=== PATIENT | male | born 1950 | race Caucasian/White ===

== ENCOUNTER 2020-11-10 11:01 | Outpatient (REF) | payer MEDICARE, MEDICAID, SELFPAY ==
[2020-11-10 13:38] LABS: Alanine Aminotransferase 13 U/L (0-40); Albumin Level 4.1 g/dL (3.5-5.0); Alkaline Phosphatase 70 U/L (39-117); Anion Gap 12 (12-20); Aspartate Amino Transferase 10 U/L (5-37); Bilirubin Total 0.5 mg/dL (0.0-1.0); Blood Urea Nitrogen 22 mg/dL (9-16); Calcium 9.1 mg/dL (8.4-10.2); Carbon Dioxide 27 mmol/L (22-29); Chloride 107 mmol/L (96-108); Estimated Glomerular Filt Rate 44; Glucose Fasting 165 mg/dL (60-99); Potassium 4.5 mmol/L (3.3-5.1); Sodium 141 mmol/L (135-145); Total Protein 7.2 g/dL (6.5-8.0)
[2020-11-10 13:42] LABS: Estimated Average Glucose 177 mg/dL; Hemoglobin A1c % 7.8 %
[2020-11-10 14:46] LABS: Prostate Specific Antigen 10.25 ng/mL (<0.05-4.0)
[2020-11-14 11:48] LABS: Testosterone, Total 438 ng/dL (250-1100)
== END 2020-11-10 11:02 | disposition home or self-care (01) ==
LOC: HO.MANLDS 11:01
PROVIDERS: PCP Internal Medicine; Visit Provider Internal Medicine
DX: E55.9 Vitamin D deficiency, unspecified (principal); E29.1 Testicular hypofunction; E11.9 Type 2 diabetes mellitus without complications
CPT/HCPCS: 36415; 80053; 82306; 83036; 84153; 84403

== ENCOUNTER 2021-01-14 10:38 | Outpatient (REF) | payer MEDICARE, MEDICAID, SELFPAY ==
[2021-01-14 12:53] LABS: Hematocrit 50.1 % (42-52); Hemoglobin 16.4 g/dl (14.0-18.0); Mean Corpuscular HGB Conc 32.7 g/dl (31.0-36.0); Mean Corpuscular Hemoglobin 29.5 pg (27.0-33.0); Mean Corpuscular Volume 90.1 fL (80-98); Mean Platelet Volume 10.3 fL (9.4-12.4); Platelet Count 171 X10*3/uL (160-400); Red Blood Count 5.56 X10*6/uL (4.60-5.80); White Blood Count 3.9 X10*3/uL (4.8-10.8)
[2021-01-14 13:08] LABS: Iron 87 mcg/dL (45-160); Percent Iron Saturation 29 % (15-50); Total Iron Binding Capacity 298 mcg/dL (228-428); Unsaturated Iron Binding 211 ug/dL
[2021-01-14 14:48] LABS: Erythrocyte Sedimentation Rate 6 MM/HR (0-15)
[2021-01-16 07:42] LABS: ~HepC Num1 0.12 S/CO (0.00-0.79); ~Hepatitis C Antibody Nonreactive (Nonreactive)
== END 2021-01-14 10:39 | disposition home or self-care (01) ==
LOC: HO.MANLDS 10:38
PROVIDERS: PCP Internal Medicine; Visit Provider Internal Medicine
DX: I10 Essential (primary) hypertension (principal); E11.9 Type 2 diabetes mellitus without complications
CPT/HCPCS: 36415; 83540; 85027; 85652; 86803

== ENCOUNTER 2021-02-18 11:45 | Outpatient (REF) | payer MEDICARE, MEDICAID, SELFPAY ==
[2021-02-18 13:11] LABS: Alanine Aminotransferase 22 U/L (0-40); Albumin Level 4.1 g/dL (3.5-5.0); Alkaline Phosphatase 68 U/L (39-117); Anion Gap 11 (12-20); Aspartate Amino Transferase 17 U/L (5-37); Bilirubin Total 0.3 mg/dL (0.0-1.0); Blood Urea Nitrogen 14 mg/dL (9-16); Calcium 9.1 mg/dL (8.4-10.2); Carbon Dioxide 25 mmol/L (22-29); Chloride 108 mmol/L (96-108); Cholesterol 239 mg/dL; Estimated Glomerular Filt Rate 51; Glucose Fasting 90 mg/dL (60-99); HDL Cholesterol 53 mg/dL; LDL Cholesterol Calculated 173 mg/dl; Potassium 4.4 mmol/L (3.3-5.1); Sodium 140 mmol/L (135-145); Triglycerides 66 mg/dL
[2021-02-18 13:41] LABS: Creatinine Urine 288.32 mg/dL; Microalbum/Creatinine Ratio Ur 68.3 ug/mg cr
[2021-02-18 14:21] LABS: Estimated Average Glucose 169 mg/dL; Hemoglobin A1c % 7.5 %
== END 2021-02-18 11:46 | disposition home or self-care (01) ==
LOC: HO.MANLDS 11:45
PROVIDERS: PCP Internal Medicine; Visit Provider Internal Medicine
DX: E11.9 Type 2 diabetes mellitus without complications (principal); I10 Essential (primary) hypertension
CPT/HCPCS: 36415; 80053; 80061; 82043; 83036

== ENCOUNTER 2021-11-24 09:49 | Outpatient (REF) | payer MEDICARE, MEDICAID, SELFPAY ==
[2021-11-24 11:26] LABS: Estimated Average Glucose 174 mg/dL; Hemoglobin A1c % 7.7 %
[2021-11-24 11:27] LABS: Alanine Aminotransferase 10 U/L (0-40); Alkaline Phosphatase 60 U/L (39-117); Anion Gap 12 (12-20); Aspartate Amino Transferase 13 U/L (5-37); Bilirubin Total 0.6 mg/dL (0.0-1.0); Blood Urea Nitrogen 26 mg/dL (9-16); Calcium 9.1 mg/dL (8.4-10.2); Carbon Dioxide 26 mmol/L (22-29); Chloride 107 mmol/L (96-108); Cholesterol 225 mg/dL; Estimated Glomerular Filt Rate 45; Glucose Fasting 135 mg/dL (60-99); HDL Cholesterol 53 mg/dL; LDL Cholesterol Calculated 155 mg/dl; Potassium 4.2 mmol/L (3.3-5.1); Sodium 141 mmol/L (135-145); Total Protein 6.8 g/dL (6.5-8.0); Triglycerides 86 mg/dL
[2021-11-24 11:48] LABS: Thyroid Stimulating Hormone 2.91 uIU/mL (0.32-4.0)
[2021-11-24 12:33] LABS: Creatinine Urine 152.83 mg/dL; Microalbum/Creatinine Ratio Ur 64.1 ug/mg cr
== END 2021-11-24 09:50 | disposition home or self-care (01) ==
LOC: HO.MANLDS 09:49
PROVIDERS: PCP Internal Medicine; Visit Provider Internal Medicine
DX: E11.9 Type 2 diabetes mellitus without complications (principal); I10 Essential (primary) hypertension; R53.83 Other fatigue
CPT/HCPCS: 36415; 80053; 80061; 82043; 83036; 84443

== ENCOUNTER 2022-06-08 10:12 | Outpatient (REF) | payer MEDICARE, MEDICAID, SELFPAY ==
[2022-06-08 11:19] LABS: MANUAL DIFF FLAG NO
[2022-06-08 11:38] LABS: Basophils Percent Auto 1.1 % (0-2); Eosinophils Absolute Auto 0.2 X10*3/uL (0.0-0.4); Hemoglobin 15.2 g/dl (14.0-18.0); Imm Gran Abs Auto 0.01 X10*3/uL (0.00-0.03); Imm Gran Pct Auto 0.3 % (0.0-0.4); Lymphocytes Percent Auto 25.7 % (20-40); Mean Corpuscular Hemoglobin 30.2 pg (27.0-33.0); Mean Corpuscular Volume 91.5 fL (80.0-98.0); Mean Platelet Volume 9.6 fL (9.4-12.4); Monocytes Absolute Auto 0.4 X10*3/uL (0.1-1.2); Monocytes Percent Auto 9.6 % (2-11); Neutrophils Absolute Auto 2.2 x10*3/uL (2.0-8.3); Neutrophils Percent Auto 59.3 % (45-73); Platelet Count 174 X10*3/uL (160-400); Red Blood Count 5.03 X10*6/uL (4.60-5.80); Red Cell Distribution Width 12.8 % (11.0-16.0); White Blood Count 3.7 X10*3/uL (4.8-10.8)
[2022-06-08 11:49] LABS: Estimated Average Glucose 146 mg/dL; Hemoglobin A1c % 6.7 %
[2022-06-08 11:58] LABS: Alanine Aminotransferase 11 U/L (0-40); Alkaline Phosphatase 63 U/L (39-117); Anion Gap 14 (12-20); Aspartate Amino Transferase 15 U/L (5-37); Bilirubin Total 0.4 mg/dL (0.0-1.0); Blood Urea Nitrogen 18 mg/dL (9-16); Calcium 9.4 mg/dL (8.4-10.2); Carbon Dioxide 26 mmol/L (22-29); Chloride 108 mmol/L (96-108); Cholesterol 212 mg/dL; Estimated Glomerular Filt Rate 50; Glucose Random 108 mg/dL (60-115); HDL Cholesterol 58 mg/dL; LDL Cholesterol Calculated 140 mg/dl; Potassium 5.1 mmol/L (3.3-5.1); Sodium 143 mmol/L (135-145); Total Protein 6.7 g/dL (6.5-8.0); Triglycerides 72 mg/dL
== END 2022-06-08 10:13 | disposition home or self-care (01) ==
LOC: HO.MANLDS 10:12
PROVIDERS: Visit Provider Internal Medicine
DX: E11.9 Type 2 diabetes mellitus without complications (principal); I10 Essential (primary) hypertension
CPT/HCPCS: 36415; 80053; 80061; 83036; 85025

== ENCOUNTER → 2022-12-30 10:59 | Outpatient (BNVA) | payer MEDICARE, MEDICAID, SELFPAY | PROVIDERS: PCP Internal Medicine; Visit Provider Psychiatry & Neurology Neurology | DX: G47.51 Confusional arousals (principal); F09 Unspecified mental disorder due to known physiological condition; F41.9 Anxiety disorder, unspecified | CPT/HCPCS: 99202 ==

== ENCOUNTER 2023-01-18 08:00 | Outpatient (REF) | payer MEDICARE, MEDICAID, SELFPAY ==
--- NOTE | 2023-01-18 08:05 | EEG_ITS ---
This is a 16 channel EEG with an EKG lead. The patient is reported awake during the tracing. Background EEG rhythm is about 10 hertz low to medium amplitude posteriorly and lower amplitude fast anteriorly. Photic stimulation does not produce any significant abnormality. Hyperventilation is not performed. Cardiac lead does not reveal any significant abnormality. No sharp wave spikes or paroxysmal tendency noted. IMPRESSION: Unremarkable EEG. MD JHON Guardado/KAYLEEN / [id number]
== END 2023-01-18 08:01 | disposition home or self-care (01) ==
LOC: HO.NEURO 08:00
PROVIDERS: PCP Internal Medicine; Visit Provider Psychiatry & Neurology Neurology
DX: G47.51 Confusional arousals (principal)
CPT/HCPCS: 95816

== ENCOUNTER 2023-01-21 10:20 | Outpatient (REF) | payer MEDICARE, MEDICAID, SELFPAY ==
[2023-01-21 12:51] LABS: MANUAL DIFF FLAG NO
[2023-01-21 12:58] LABS: Basophils Percent Auto 0.5 % (0-2); Eosinophils Absolute Auto 0.1 X10*3/uL (0.0-0.4); Eosinophils Percent Auto 1.6 % (0-4); Hematocrit 49.1 % (42.0-52.0); Imm Gran Abs Auto 0.03 X10*3/uL (0.00-0.03); Imm Gran Pct Auto 0.7 % (0.0-0.4); Lymphocytes Percent Auto 24.1 % (20-40); Mean Corpuscular HGB Conc 32.6 g/dl (31.0-36.0); Mean Corpuscular Hemoglobin 30.3 pg (27.0-33.0); Mean Platelet Volume 10.3 fL (9.4-12.4); Monocytes Absolute Auto 0.4 X10*3/uL (0.1-1.2); Monocytes Percent Auto 8.9 % (2-11); Neutrophils Absolute Auto 2.7 x10*3/uL (2.0-8.3); Neutrophils Percent Auto 64.2 % (45-73); Platelet Count 168 X10*3/uL (160-400); Red Blood Count 5.28 X10*6/uL (4.60-5.80); Red Cell Distribution Width 13.2 % (11.0-16.0); White Blood Count 4.3 X10*3/uL (4.8-10.8)
[2023-01-21 13:04] LABS: Estimated Average Glucose 183 mg/dL
[2023-01-21 13:08] LABS: Alanine Aminotransferase 14 U/L (0-40); Alkaline Phosphatase 69 U/L (39-117); Anion Gap 14 (12-20); Aspartate Amino Transferase 18 U/L (5-37); Bilirubin Total 0.5 mg/dL (0.0-1.0); Blood Urea Nitrogen 21 mg/dL (9-16); Calcium 9.1 mg/dL (8.4-10.2); Carbon Dioxide 26 mmol/L (22-29); Chloride 108 mmol/L (96-108); Cholesterol 227 mg/dL; Estimated Glomerular Filt Rate 48; Glucose Random 121 mg/dL (60-115); HDL Cholesterol 58 mg/dL; LDL Cholesterol Calculated 157 mg/dl; Sodium 143 mmol/L (135-145); Total Protein 6.6 g/dL (6.5-8.0); Triglycerides 64 mg/dL
== END 2023-01-21 10:21 | disposition home or self-care (01) ==
LOC: HO.MANLDS 10:20
PROVIDERS: Visit Provider Internal Medicine
DX: E11.9 Type 2 diabetes mellitus without complications (principal); I10 Essential (primary) hypertension
CPT/HCPCS: 36415; 80053; 80061; 83036; 85025

== ENCOUNTER 2023-06-17 11:12 | Outpatient (AMB) | payer MEDICARE, MEDICAID, SELFPAY ==
--- NOTE | 2023-06-17 11:31 | MHC.OFFVIS ---
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: No Allergies ezetimibe Allergy (Severe, Verified 06/17/23 11:33) back ache fluticasone [From Advair Diskus] Allergy (Severe, Verified 06/17/23 11:33) Cough metoclopramide [From Reglan] Allergy (Severe, Verified 06/17/23 11:33) Itching salmeterol [From Advair Diskus] Allergy (Severe, Verified 06/17/23 11:33) Cough Sulfa (Sulfonamide Antibiotics) Allergy (Unknown, Verified 06/17/23 11:33) Unknown metformin Adverse Reaction (Severe, Verified 06/17/23 11:33) Hives breo elipta Allergy (Severe, Uncoded 06/17/23 11:33) Cough HPI HPI Comments History of Present Illness Details 72 y/o male comes for evaluation of episodes of confusion in sleep. Pt's noticed arousals from sleep where patient was confused. He has had 4 episodes since the last visit. It is usually in a the second part of the night- around 3-4 am. He woke up, came out of his room without clothes and did not know the date, had difficulty remembering his sons name and 's name. He does not remember these episodes when he wakes up in the morning. He tried ativan 0.5 mg but not tolerated, groggy and can't think well the next day. He denies nightmares or insomnia. He is on BiPAP and managed by sleep medicine services. The compliance and therapy response (03/19/12-06/16/23) reviewed. He is on BiPAP 15/05. The usage days 100 % and the average usage hours 8 hrs 50 min. The AHI was 1.3/hr. He has short term memory issues during daytime. He had mild anxiety and depression and started escitalopram 10 mg but it caused irritation and temper. Pt does not want to take escitalopram. Pt reports bilateral hands tremor L>R, left started couple of years ago and right hand tremor started recently. He has difficulty writing, and drinking water. He reports he tripped and fall a lot, left leg more stiff than right. Pt denies drooling, difficulty swallowing or constipation. MRI Brain - 01/2022 - Nonspecific white matter changes He was seeing Dr. Pacheco for chronic migraines and had neuropsych eval with Dr. Petit. [facility] Medical History (Updated 12/30/22 @ 11:51 by Bernadette Coreas MD) Cognitive disorder Obstructive sleep apnea Confusional arousals Anxiety Pulmonary embolism Heart murmur HTN (hypertension) Pulmonary HTN Migraine Depression Factor 5 Leiden mutation, heterozygous DVT (deep venous thrombosis) Asthma Abducens nerve palsy Insomnia Diabetes Surgical History History of carpal tunnel surgery History of cataract surgery History of back surgery H/O hernia repair History of laparoscopic appendectomy Family History (Updated 06/17/23 @ 11:40 by Zeinab Landry CMA) Father HTN (hypertension) CHF (congestive heart failure) Diabetes Brother Prostate cancer Social History (Updated 06/17/23 @ 11:40 by Zeinab Landry CMA) Alcohol intake: never Patient Tobacco Use Status: Never used Tobacco Use of substances other than those prescribed or required for medical reasons: No Review of Systems Const All systems reviewed & are unremarkable except as noted in HPI and below Physical Exam Vital Signs: Last Vital Signs Pulse 77 06/17/23 11:40 BP 130/68 06/17/23 11:40 Pulse Ox 96 06/17/23 11:40 Oxygen Delivery Method Room Air 06/17/23 11:40 Const General: cooperative, healthy appearing, comfortable and anxious Nutritional Appearance: overweight Orientation/consciousness: patient oriented x3 Limitations: no limitations HEENT Head: Yes normal to inspection and Yes normocephalic Eyes Pupils: Equal, round and reactive pupils present Neuro Other: very mildly decreased facial expression. fine finger movement intact. mild bilateral hands posturing tremor. L >R decreased arm swing. General: patient oriented x3, tone normal, moves all extremities and no focal motor deficits Cranial nerves: Yes Equal, round and reactive pupils present, Yes Bilaterally intact EOM present, Yes Nystagmus not present, Yes Normal facial strength present, Yes Midline tongue present, Yes Symmetric palate elevation present and Yes Ability to bilaterally elevate shoulders present Cognition (Neuro): normal cognition Gait exam (Neuro): Normal gait present Motor exam (neuro): 5/5 motor strength present throughout and Normal motor muscle tone present throughout Deep tendon reflexes (DTR's): Right triceps reflex intensity grade: 1+, Left triceps reflex intensity grade: 1+, Rt Biceps (C5, C6): 1+, Left biceps reflex intensity grade: 1+, Right brachioradialis reflex intensity grade: 1+, Left brachioradialis reflex intensity grade: 1+, Right patellar reflex intensity grade: 1+ and Left patellar reflex intensity grade: 1+ Coordination: [id number] test normal Psych Appearance: grossly normal Mental Status: mental status grossly normal Affect: normal affect Attitude: cooperative Assessment & Plan Assessment & Plan (1) Confusional arousals: Code(s): G47.51 - Confusional arousals (2) Anxiety: Code(s): F41.9 - Anxiety disorder, unspecified (3) Cognitive disorder: Code(s): F09 - Unspecified mental disorder due to known physiological condition Plan Advised him tapered off escitalopram. Continue to use BiPAP, nightly and more than 4 hrs. Advised patient to have repeat PSG sleep study to assess REM behavior. Advised patient to take melatonin 5 mg to 10 mg qHS to manage REM behavior. F/U with Dr. Coreas for possible Parkinson's. Medications: New melatonin 5 mg PO BEDTIME 30 days PRN 30 tabs 6RF sleep melatonin 10 mg (2 x 5 mg) PO BEDTIME 30 days PRN 60 tabs 6RF sleep Coding Level of Care Code Est Pt Level 4 (00223) Diagnoses Confusional arousals G47.51 Anxiety F41.9 Cognitive disorder F09
[2023-06-17 11:40] VITALS: BP 130/68; PULSE 77; O2SAT 96
== END 2023-06-17 12:50 | disposition home or self-care (01) ==
PROVIDERS: Visit Provider Nurse Practitioner Family
DX: G47.51 Confusional arousals (principal); F41.9 Anxiety disorder, unspecified; R41.89 Other symptoms and signs involving cognitive functions and awareness
CPT/HCPCS: 99214

== ENCOUNTER → 2023-06-17 11:12 | Outpatient (BNVA) | payer MEDICARE, MEDICAID, SELFPAY | PROVIDERS: Visit Provider Nurse Practitioner Family | DX: G47.51 Confusional arousals (principal); F32.A Depression, unspecified; F41.9 Anxiety disorder, unspecified | CPT/HCPCS: 99212 ==

== ENCOUNTER → 2023-06-22 19:30 | Outpatient (REF) | payer MEDICARE, MEDICAID, SELFPAY | LOC: HO.SL 19:30 | PROVIDERS: Visit Provider Nurse Practitioner Family | DX: G47.33 Obstructive sleep apnea (adult) (pediatric) (principal); G47.52 REM sleep behavior disorder; R01.1 Cardiac murmur, unspecified; I10 Essential (primary) hypertension | CPT/HCPCS: 95810 ==

== ENCOUNTER → 2023-06-23 00:55 | Outpatient (BNV) | payer MEDICARE, MEDICAID, SELFPAY | PROVIDERS: Visit Provider Psychiatry & Neurology Neurology | DX: G47.33 Obstructive sleep apnea (adult) (pediatric) (principal) | CPT/HCPCS: 95810 ==

== ENCOUNTER 2023-08-03 12:56 | Outpatient (REF) | payer MEDICARE, MEDICAID, SELFPAY ==
--- NOTE | 2023-08-03 13:01 | EEG_ITS ---
This is a 16-channel EEG with an EKG lead. The patient is reported awake during the tracing. Background EEG rhythm is 10 to 12 hertz, 5 to 50 microvolt posteriorly lower amplitude and fast anteriorly. Couple of brief left hemispheric, temporal area sharply contoured theta range discharges lasting for a second or two were noted. Photic stimulation did not produce any significant driving and hyperventilation was unremarkable. Cardiac lead did not reveal any significant abnormality. IMPRESSION: Slightly abnormal EEG suggestive of paroxysmal left hemispheric, temporal, disorder and suspicion of partial seizure disorder. MD JHON Guardado/KAYLEEN / [id number]
== END 2023-08-03 12:57 | disposition home or self-care (01) ==
LOC: HO.NEURO 12:56
PROVIDERS: Visit Provider Nurse Practitioner Family
DX: G47.51 Confusional arousals (principal); R56.9 Unspecified convulsions
CPT/HCPCS: 95816

== ENCOUNTER 2023-08-18 14:01 | Outpatient (AMB) | payer MEDICARE, MEDICAID, SELFPAY ==
--- NOTE | 2023-08-18 14:08 | A.OFFVIS_ITS ---
Intake Vital Signs 08/18/23 14:09 Height 5 ft 9 in Weight 218 lb BMI 32.2 BP 130/74 Blood Pressure Location Rt brachial Position Sitting Pulse 86 Pulse Source Pulse Oximeter Pulse Oximetry (%) 96 Oxygen Delivery Method Room Air Intake Visit Reasons: Follow up - Confirmed Intake Note: Patient presents for follow up. Patient states I dont have a good balance I have pt that comes to the house and it's ending tuesday. I'm also dropping stuff. Allergies ezetimibe Allergy (Severe, Verified 08/18/23 14:14) back ache fluticasone [From Advair Diskus] Allergy (Severe, Verified 08/18/23 14:14) Cough metoclopramide [From Reglan] Allergy (Severe, Verified 08/18/23 14:14) Itching salmeterol [From Advair Diskus] Allergy (Severe, Verified 08/18/23 14:14) Cough Sulfa (Sulfonamide Antibiotics) Allergy (Unknown, Verified 08/18/23 14:14) Unknown metformin Adverse Reaction (Severe, Verified 08/18/23 14:14) Hives breo elipta Allergy (Severe, Uncoded 08/18/23 14:14) Cough HPI HPI Comments History of Present Illness0 Details 72 y/o male patient presents with his wi fe for follow up of sleep study. Pt underwent PSG sleep study to assess REM behavior. The study result was significant for mild degree of sleep apnea with increased severity in REM. The AHI was 10/hr, REM AHI was 50/hr, and oxygen ravindra was 82%. Sleep efficiency was 44.7%, REM latency was 205 min, and REM sleep was 6.1 % of the total sleep time. Pt had EEG done and the result was Slightly abnormal EEG suggestive of paroxysmal left hemispheric, temporal, disorder and suspicion of partial seizure disorder. He started Keppra, but it caused mood changes and stopped on 08/09. He started lamotrigine 100 mg BID, 08/10 he still feels irritable but not really bad. He still wakes up couple of times, but able to go back to sleep. He is on doxepin and melatonin and his sleep behavior has been improved a lot. [facility] Medical History (Updated 07/08/23 @ 15:47 by Ruma Gilmore CNP) Cognitive disorder Obstructive sleep apnea Confusional arousals Anxiety Pulmonary embolism Heart murmur HTN (hypertension) Pulmonary HTN Migraine Depression Factor 5 Leiden mutation, heterozygous DVT (deep venous thrombosis) Asthma Abducens nerve palsy Insomnia Diabetes Surgical History History of carpal tunnel surgery History of cataract surgery History of back surgery H/O hernia repair History of laparoscopic appendectomy Family History Father HTN (hypertension) CHF (congestive heart failure) Diabetes Brother Prostate cancer Social History Alcohol intake: never Patient Tobacco Use Status: Never used Tobacco Review of Systems Const All systems reviewed & are unremarkable except as noted in HPI and below Physical Exam Vital Signs: Last Vital Signs Pulse 86 08/18/23 14:09 BP 130/74 08/18/23 14:09 Pulse Ox 96 08/18/23 14:09 Oxygen Delivery Method Room Air 08/18/23 14:09 BMI result Body Mass Index 32.2 Const General: cooperative, healthy appearing, comfortable and anxious Nutritional Appearance: overweight Orientation/consciousness: patient oriented x3 Limitations: no limitations HEENT Head: Yes normal to inspection and Yes normocephalic Eyes Pupils: Equal, round and reactive pupils present Neuro Other: very mildly decreased facial expression. fine finger movement intact. mild bilateral hands posturing tremor. L >R decreased arm swing. General: patient oriented x3, tone normal, moves all extremities and no focal motor deficits Cranial nerves: Yes Equal, round and reactive pupils present, Yes Bilaterally intact EOM present, Yes Nystagmus not present, Yes Normal facial strength present, Yes Midline tongue present, Yes Symmetric palate elevation present and Yes Ability to bilaterally elevate shoulders present Cognition (Neuro): normal cognition Gait exam (Neuro): Normal gait present Motor exam (neuro): 5/5 motor strength present throughout and Normal motor muscle tone present throughout Deep tendon reflexes (DTR's): Right triceps reflex intensity grade: 1+, Left triceps reflex intensity grade: 1+, Rt Biceps (C5, C6): 1+, Left biceps reflex intensity grade: 1+, Right brachioradialis reflex intensity grade: 1+, Left brachioradialis reflex intensity grade: 1+, Right patellar reflex intensity grade: 1+ and Left patellar reflex intensity grade: 1+ Coordination: [id number] test normal Psych Appearance: grossly normal Mental Status: mental status grossly normal Affect: normal affect Attitude: cooperative Assessment & Plan Assessment & Plan (1) Seizure-like activity: Code(s): R56.9 - Unspecified convulsions (2) REM behavioral disorder: Code(s): G47.52 - REM sleep behavior disorder (3) Obstructive sleep apnea: Comment: On BiPAP Code(s): G47.33 - Obstructive sleep apnea (adult) (pediatric) Plan Continue to take lamotrigine 100 mg BID, doxepin 3 mg and melatonin 10 mg qHS. Continue to use BiPAP nightly and more than 4 hrs, as patient experiences good clinical effects. Stressed medication and BiPAP compliance. Orders: Orders EEG electroencephalogram 08/03/23 G47.51 - Confusional arousals, R56.9 - Unspecified convulsions Coding Level of Care Code Est Pt Level 4 (63746) Diagnoses Seizure-like activity R56.9 REM behavioral disorder G47.52 Obstructive sleep apnea G47.33
[2023-08-18 14:09] VITALS: BP 130/74; PULSE 86; O2SAT 96; BMI 32.2
== END 2023-08-18 14:42 | disposition home or self-care (01) ==
PROVIDERS: PCP Internal Medicine; Visit Provider Nurse Practitioner Family
DX: R56.9 Unspecified convulsions (principal); G47.52 REM sleep behavior disorder; G47.33 Obstructive sleep apnea (adult) (pediatric)
CPT/HCPCS: 99214

== ENCOUNTER → 2023-08-18 14:01 | Outpatient (BNVA) | payer MEDICARE, MEDICAID, SELFPAY | PROVIDERS: PCP Internal Medicine; Visit Provider Nurse Practitioner Family | DX: G47.52 REM sleep behavior disorder (principal); R56.9 Unspecified convulsions; G47.33 Obstructive sleep apnea (adult) (pediatric) | CPT/HCPCS: 99212 ==

== ENCOUNTER 2023-09-05 10:40 | Outpatient (REF) | payer MEDICARE, MEDICAID, SELFPAY ==
[2023-09-05 13:24] LABS: MANUAL DIFF FLAG NO
[2023-09-05 13:57] LABS: Basophils Percent Auto 0.7 % (0-2); Eosinophils Absolute Auto 0.1 X10*3/uL (0.0-0.4); Hematocrit 47.3 % (42.0-52.0); Hemoglobin 15.4 g/dl (14.0-18.0); Imm Gran Abs Auto 0.02 X10*3/uL (0.00-0.03); Imm Gran Pct Auto 0.5 % (0.0-0.4); Lymphocytes Percent Auto 24.3 % (20-40); Mean Corpuscular HGB Conc 32.6 g/dl (31.0-36.0); Mean Corpuscular Hemoglobin 30.3 pg (27.0-33.0); Mean Corpuscular Volume 93.1 fL (80.0-98.0); Mean Platelet Volume 9.6 fL (9.4-12.4); Monocytes Absolute Auto 0.4 X10*3/uL (0.1-1.2); Monocytes Percent Auto 8.9 % (2-11); Neutrophils Absolute Auto 2.6 x10*3/uL (2.0-8.3); Neutrophils Percent Auto 63.6 % (45-73); Platelet Count 170 X10*3/uL (160-400); Red Blood Count 5.08 X10*6/uL (4.60-5.80); Red Cell Distribution Width 13.2 % (11.0-16.0)
[2023-09-05 14:08] LABS: Estimated Average Glucose 154 mg/dL
[2023-09-05 14:26] LABS: Alanine Aminotransferase 16 U/L (0-40); Alkaline Phosphatase 58 U/L (39-117); Anion Gap 12 (12-20); Aspartate Amino Transferase 17 U/L (5-37); Bilirubin Total 0.4 mg/dL (0.0-1.0); Blood Urea Nitrogen 24 mg/dL (9-16); Calcium 9.2 mg/dL (8.4-10.2); Carbon Dioxide 25 mmol/L (22-29); Chloride 109 mmol/L (96-108); Cholesterol 227 mg/dL (<200); Estimated Glomerular Filt Rate 45; Glucose Random 126 mg/dL (60-115); HDL Cholesterol 62 mg/dL (>40); LDL Cholesterol Calculated 151 mg/dL (<100); Potassium 4.4 mmol/L (3.3-5.1); Sodium 142 mmol/L (135-145); Total Protein 7.1 g/dL (6.5-8.0); Triglycerides 72 mg/dL (<150)
== END 2023-09-05 10:41 | disposition home or self-care (01) ==
LOC: HO.MANLDS 10:40
PROVIDERS: Visit Provider Internal Medicine
DX: E11.9 Type 2 diabetes mellitus without complications (principal)
CPT/HCPCS: 36415; 80053; 80061; 83036; 85025

== ENCOUNTER 2023-09-28 10:10 | Outpatient (REF) | payer MEDICARE, MEDICAID, SELFPAY ==
[2023-09-28 13:23] LABS: MANUAL DIFF FLAG NO
[2023-09-28 13:35] LABS: Basophils Percent Auto 0.7 % (0-2); Eosinophils Absolute Auto 0.1 X10*3/uL (0.0-0.4); Eosinophils Percent Auto 2.8 % (0-4); Hematocrit 46.1 % (42.0-52.0); Hemoglobin 15.2 g/dl (14.0-18.0); Imm Gran Abs Auto 0.03 X10*3/uL (0.00-0.03); Imm Gran Pct Auto 0.7 % (0.0-0.4); Lymphocytes Percent Auto 23.9 % (20-40); Mean Corpuscular Hemoglobin 31.1 pg (27.0-33.0); Mean Corpuscular Volume 94.3 fL (80.0-98.0); Mean Platelet Volume 9.9 fL (9.4-12.4); Monocytes Absolute Auto 0.4 X10*3/uL (0.1-1.2); Monocytes Percent Auto 9.2 % (2-11); Neutrophils Absolute Auto 2.7 x10*3/uL (2.0-8.3); Neutrophils Percent Auto 62.7 % (45-73); Platelet Count 160 X10*3/uL (160-400); Red Blood Count 4.89 X10*6/uL (4.60-5.80); Red Cell Distribution Width 13.2 % (11.0-16.0); White Blood Count 4.4 X10*3/uL (4.8-10.8)
[2023-09-28 13:41] LABS: Estimated Average Glucose 148 mg/dL; Hemoglobin A1c % 6.8 % (<6.0)
[2023-09-28 16:24] LABS: Alanine Aminotransferase 17 U/L (0-40); Albumin Level 4.1 g/dL (3.5-5.0); Alkaline Phosphatase 57 U/L (39-117); Anion Gap 12 (12-20); Aspartate Amino Transferase 17 U/L (5-37); Bilirubin Total 0.3 mg/dL (0.0-1.0); Blood Urea Nitrogen 18 mg/dL (9-16); Calcium 9.4 mg/dL (8.4-10.2); Carbon Dioxide 25 mmol/L (22-29); Chloride 107 mmol/L (96-108); Cholesterol 223 mg/dL (<200); Estimated Glomerular Filt Rate 47; Glucose Random 158 mg/dL (60-115); HDL Cholesterol 67 mg/dL (>40); LDL Cholesterol Calculated 141 mg/dL (<100); Potassium 4.1 mmol/L (3.3-5.1); Sodium 140 mmol/L (135-145); Total Protein 7.1 g/dL (6.5-8.0); Triglycerides 78 mg/dL (<150)
== END 2023-09-28 10:11 | disposition home or self-care (01) ==
LOC: HO.MANLDS 10:10
PROVIDERS: Visit Provider Internal Medicine
DX: E11.9 Type 2 diabetes mellitus without complications (principal)
CPT/HCPCS: 36415; 80053; 80061; 83036; 85025

== ENCOUNTER 2023-10-31 16:22 | Outpatient (REF) | payer OTHER, SELFPAY ==
[2023-10-31 16:36] LABS: MANUAL DIFF FLAG NO
[2023-10-31 16:46] LABS: Basophils Percent Auto 0.6 % (0-2); Eosinophils Absolute Auto 0.2 X10*3/uL (0.0-0.4); Eosinophils Percent Auto 3.5 % (0-4); Hematocrit 46.1 % (42.0-52.0); Hemoglobin 15.4 g/dl (14.0-18.0); Imm Gran Abs Auto 0.02 X10*3/uL (0.00-0.03); Imm Gran Pct Auto 0.4 % (0.0-0.4); Lymphocytes Absolute Auto 1.4 X10*3/uL (1.2-4.9); Lymphocytes Percent Auto 28.7 % (20-40); Mean Corpuscular HGB Conc 33.4 g/dl (31.0-36.0); Mean Corpuscular Volume 92.8 fL (80.0-98.0); Mean Platelet Volume 9.3 fL (9.4-12.4); Monocytes Absolute Auto 0.5 X10*3/uL (0.1-1.2); Monocytes Percent Auto 9.9 % (2-11); Neutrophils Absolute Auto 2.8 x10*3/uL (2.0-8.3); Neutrophils Percent Auto 56.9 % (45-73); Platelet Count 167 X10*3/uL (160-400); Red Blood Count 4.97 X10*6/uL (4.60-5.80); Red Cell Distribution Width 12.9 % (11.0-16.0); White Blood Count 4.8 X10*3/uL (4.8-10.8)
[2023-10-31 18:12] LABS: Alanine Aminotransferase 18 U/L (0-40); Albumin Level 4.1 g/dL (3.5-5.0); Alkaline Phosphatase 68 U/L (39-117); Anion Gap 14 (12-20); Aspartate Amino Transferase 17 U/L (5-37); Bilirubin Total 0.3 mg/dL (0.0-1.0); Blood Urea Nitrogen 21 mg/dL (9-16); Calcium 9.6 mg/dL (8.4-10.2); Carbon Dioxide 25 mmol/L (22-29); Chloride 108 mmol/L (96-108); Estimated Glomerular Filt Rate 40; Glucose Random 173 mg/dL (60-115); Potassium 4.5 mmol/L (3.3-5.1); Sodium 142 mmol/L (135-145); Total Protein 7.4 g/dL (6.5-8.0)
[2023-10-31 18:33] LABS: Vitamin B12 1583 pg/mL (200-900)
[2023-11-05 15:44] LABS: Testosterone, Total 508 ng/dL (250-1100)
== END 2023-10-31 16:23 | disposition home or self-care (01) ==
LOC: HO.LAB 16:22
PROVIDERS: PCP Internal Medicine; Visit Provider Internal Medicine
DX: R53.83 Other fatigue (principal)
CPT/HCPCS: 36415; 80053; 82607; 84403; 84443; 85025

== ENCOUNTER 2024-01-02 12:01 | Outpatient (REF) | payer OTHER, SELFPAY ==
[2024-01-02 17:46] LABS: MANUAL DIFF FLAG NO
[2024-01-02 18:03] LABS: Basophils Percent Auto 0.7 % (0-2); Eosinophils Absolute Auto 0.1 X10*3/uL (0.0-0.4); Eosinophils Percent Auto 4.3 % (0-4); Hematocrit 46.3 % (42.0-52.0); Hemoglobin 15.3 g/dl (14.0-18.0); Imm Gran Abs Auto 0.02 X10*3/uL (0.00-0.03); Imm Gran Pct Auto 0.7 % (0.0-0.4); Lymphocytes Absolute Auto 0.9 X10*3/uL (1.2-4.9); Lymphocytes Percent Auto 29.4 % (20-40); Mean Corpuscular Hemoglobin 30.8 pg (27.0-33.0); Mean Corpuscular Volume 93.3 fL (80.0-98.0); Mean Platelet Volume 9.9 fL (9.4-12.4); Monocytes Absolute Auto 0.4 X10*3/uL (0.1-1.2); Monocytes Percent Auto 12.7 % (2-11); Neutrophils Absolute Auto 1.6 x10*3/uL (2.0-8.3); Neutrophils Percent Auto 52.2 % (45-73); Platelet Count 182 X10*3/uL (160-400); Red Blood Count 4.96 X10*6/uL (4.60-5.80); Red Cell Distribution Width 13.8 % (11.0-16.0)
[2024-01-02 18:43] LABS: Estimated Average Glucose 163 mg/dL; Hemoglobin A1c % 7.3 % (<6.0)
[2024-01-02 19:06] LABS: Alanine Aminotransferase 13 U/L (0-40); Alkaline Phosphatase 61 U/L (39-117); Anion Gap 10 (12-20); Aspartate Amino Transferase 14 U/L (5-37); Bilirubin Total 0.4 mg/dL (0.0-1.0); Blood Urea Nitrogen 23 mg/dL (9-16); Calcium 9.6 mg/dL (8.4-10.2); Carbon Dioxide 27 mmol/L (22-29); Chloride 111 mmol/L (96-108); Cholesterol 218 mg/dL (<200); Estimated Glomerular Filt Rate 41; Glucose Random 115 mg/dL (60-115); HDL Cholesterol 53 mg/dL (>40); LDL Cholesterol Calculated 149 mg/dL (<100); Potassium 4.8 mmol/L (3.3-5.1); Sodium 143 mmol/L (135-145); Total Protein 7.2 g/dL (6.5-8.0); Triglycerides 83 mg/dL (<150)
[2024-01-02 19:14] LABS: Free T4 (Free Thyroxine) 0.89 ng/dL (0.71-1.85); Thyroid Stimulating Hormone 1.69 uIU/mL (0.32-4.0)
== END 2024-01-02 12:02 | disposition home or self-care (01) ==
LOC: HO.MANLDS 12:01
PROVIDERS: Visit Provider Internal Medicine
DX: E02 Subclinical iodine-deficiency hypothyroidism (principal); E11.9 Type 2 diabetes mellitus without complications
CPT/HCPCS: 36415; 80053; 80061; 83036; 84439; 84443; 85025

== ENCOUNTER 2024-12-03 15:21 | Outpatient (REF) | payer MEDICAID, SELFPAY ==
--- OUTSIDE RECORDS SUMMARY | 2024-12-03 18:17 | XMS_ITS | Continuity of Care Document ---
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 REVIEW OF PRIOR EXTERNAL NOTES/RESULTS, ORDERING OF TEST(S) CATEGORY 2. ASSESSMENT REQUIRING INDEPENDENT HISTORIAN(S) INCLUDE WHO THE HISTORIAN IS AND RELATION TO PT AND WHY PT IS UNABLE TO GIVE COMPLETE HISTORY ELEMENT 3: RISK (LOW) RISK OF COMPLICATIONS AND/OR MORBIDITY OR MORTALITY OF PATIENT MANAGEMENT PROVIDER MUST THOROUGHLY DOCUMENT ALL OF THE ELEMENTS COVERED [email or web address] Not available 12/03/2024 15:06:20 Plan of Treatment Reminders Order Date Submit Date Provider Last Modified By Organization Details Last Modified Time Details Appointments INJECTION 2024 02:45P M DR GARCIA Not available Not available Not available MEDICARE ANNUAL WELLNESS 2025 02:30P M DR GARCIA Not available Not available Not available Lab None recorded. Referral None recorded. Procedures None recorded. Surgeries None recorded. Imaging None recorded. Medication Orders None recorded. Patient TargetsNo targets recorded. Patient InstructionsNo instructions recorded. Reason for Referral None Reported. Results Created Date Observation Date Name Description Value Unit Range Abnormal Flag Note LastModifiedBy Organization Detail LastModifiedTime 11/27/19 25 11/26/2024 XR, knee, 3 view No observ ation record ed. [email or web address] [facility] [address], [place], [address], 11/28/2024 11:10:08 Result Notes None recorded. Problems Name Problem SNOMED Code Status Onset Date Resolution Date Notes Provider Name and Address Organization Details Recorded Time Depressi ve disorder 04803687 Active 2017 Not Available [facility] 2 13:13:14 Disorder of shoulder 913637016 Active 2017 Not Available [facility] 2 13:13:14 Injury of tendon of the rotator cuff of shoulder 531986753 Active 2017 Not Available [facility] 2 13:13:14 Loss of sense of smell 61387418 Active 2017 Not Available [facility] 2 13:13:14 Prostate specific antigen above referenc e range 117177310 Active 2018 Not Available [facility] 2 13:13:14 Primary erectile dysfunct ion 392828756 Active 2020 Not Available [facility] 2 13:13:14 Migraine 58034867 Active 2021 AVANI GOMEZ [address] [place] [address], [address], [facility] 2 15:16:01 Asthma 890558782 Active 2021 AVANI GOMEZ [address] [place] [address], [address], [facility] 2 15:27:50 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 Irvin Garcia DO [address] [place] [address], [address], [facility] 2 11:53:16 Acute maxillar y sinusiti s 17132728 Active 2021 Irvin Garcia DO [address] [place] [address], [address], [facility] 2 11:54:53 Type 2 diabetes mellitus 37350051 Active 2021 Irvin Garcia DO [address] [place] [address], [address], [facility] 2 15:50:31 Abducens nerve palsy 406497207 Active 2021 Irvin Garcia DO [address] [place] [address], [address], [facility] 2 15:51:02 Abdomina l pain 56852676 Active 2021 AVANI GOMEZ [address] [place] [address], [address], [facility] 2 10:49:35 Insomnia 452749012 Active 2021 AVANI GOMEZ [address] [place] [address], [address], [facility] 2 10:51:36 Right lower quadrant pain 011155585 Active 2021 AVANI GOMEZ [address] [place] [address], [address], [facility] 2 13:39:41 Erectile dysfunct ion 327839974 Active 2022 Irvin Garcia DO [address] [place] [address], [address], [facility] 3 14:28:20 Rash of groin 05861585860 297991 Active 2022 Irvin Garcia DO [address] [place] [address], [address], [facility] 3 20:56:46 Candidal balaniti s 36924360 Active 2022 Irvin Garcia DO [address] [place] [address], [address], [facility] 3 20:58:01 Bilatera l lower leg edema 868050065 Active 2022 Irvin Garcia DO [address] [place] [address], , [facility] 3 08:53:18 COVID-19 236216653 Active 2022 AVANI GOMEZ [address] [place] [address], , [facility] 3 10:20:19 Altered mental status 966849923 Active 2022 AVANI GOMEZ [address] [place] [address], , [facility] 3 12:39:39 Bilatera l hip joint pain 62357513629 509417 Active 2022 AVANI GOMEZ [address] [place] [address], , [facility] 3 08:29:46 Osteopor osis 31645842 Active 2022 AVANI GOMEZ [address] [place] [address], , [facility] 3 08:30:58 Seizure disorder 758570389 Active 2022 AVANI GOMEZ [address] [place] [address], [address], [facility] 3 14:20:17 Hypothyr oidism 97308417 Active 2022 AVANI GOMEZ [address] [place] [address], , [facility] 3 13:14:19 Chronic kidney disease 175130896 Active 2022 AVANI GOMEZ [address] [place] [address], , [facility] 3 13:14:31 Memory impairme nt 250114903 Active 2022 AVANI GOMEZ [address] [place] [address], , [facility] 3 13:16:51 Anemia 501275669 Active 2022 AVANI GOMEZ [address] [place] [address], [address], [facility] 3 15:53:40 Pain in right hip joint 25147024949 9102 Active 2022 AVANI GOMEZ [address] [place] [address], [address], [facility] 3 08:34:11 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 84537503 Active 2022 Irvin Garcia, DO [address] [place] [address], [address], [facility] 3 15:53:50 Recurren t deep vein thrombos is 260316043 Active 2023 Irvin Garcia, DO [address] [place] [address], [address], [facility] 4 14:21:32 Obstruct elba sleep apnea syndrome 22047182 Active 2023 Irvin Garcia, DO [address] [place] [address], [address], [facility] 4 16:05:20 Fatigue 54797620 Active 2023 Irvin Garcia, DO [address] [place] [address], [address], [facility] 4 14:06:55 Acetabul ar labrum tear 548336168 Active 2023 AVANI GOMEZ [address] [place] [address], [address], [facility] 4 13:28:54 Osteoart hritis 380468080 Active 2023 AVANI GOMEZ [address] [place] [address], [address], [facility] 4 15:55:39 Rupture of hamstrin g tendon 378410047 Active 2023 AVANI GOMEZ [address] [place] [address], [address], [facility] 4 11:35:43 Corneal abrasion 24943810 Active 2023 AVANI GOMEZ [address] [place] [address], [address], [facility] 4 11:37:39 Corneal abrasion 64281422 Active 2023 AVANI GOMEZ [address] [place] [address], [address], [facility] 4 11:39:11 Low back pain 825411094 Active 2023 AVANI GOMEZ [address] [place] [address], [address], [facility] 4 11:39:20 Impacted cerumen of bilatera l ears 44469256331 64487 Active 2023 AVANI GOMEZ [address] [place] [address], [address], [facility] 4 11:39:33 Tremor 29580343 Active 2023 Irvin Garcia DO [address] [place] [address], [address], [facility] 4 13:36:17 Sleep apnea 96956534 Active 2023 AVANI GOMEZ [address] [place] [address], [address], [facility] 4 16:28:15 Dyspnea 882622011 Active 2023 AVANI GOMEZ [address] [place] [address], [address], [facility] 4 13:50:18 Pain of left knee joint 67042377640 4107 Active 2024 Irvin Garcia DO [address] [place] [address], [address], [facility] 5 14:17:11 Conjunct ival hyperemi a 913329151 Active 2024 Irvin Dumont Lacey, DO [address] [place], [address], [facility] 5 14:19:34 Pruritic rash 62552471 Active 2024 Irvin Dumont Lacey, DO [address] [place], [address], [facility] 5 14:21:17 Allergic conjunct ivitis 698478402 Active 2024 Irvin Dumont Kaceyelena, DO [address] [place], [address], [facility] 5 14:23:30 Diabetes mellitus 24683732 Active 2017 Not Available [facility] 2 13:13:14 Deep venous thrombos is 912398737 Active 2017 Not Available [facility] 2 13:13:14 Pulmonar y embolism 86726762 Active 2017 Not Available [facility] 2 13:13:14 Umbilica l hernia 647838992 Active 2017 Not Available [facility] 2 13:13:14 Hyperlip idemia 98298378 Active 2017 Not Available [facility] 2 13:13:14 [facility] hyperten britney 38704973 Active 2017 Not Available [facility] 2 13:13:14 Headache 81076482 Active 2017 Not Available [facility] 2 13:13:14 Heart murmur 51950399 Active 2017 Not Available [facility] 2 13:13:14 History of appendec anne 739569450 Active 2017 Not Available [facility] 2 13:13:14 Factor V Leiden mutation 013902050 Active 2017 Not Available [facility] 2 13:13:14 Benign neoplast ic disease 80190603 Active 2017 removed Not Available [facility] 2 13:13:14 Superfic ial thrombop hlebitis of basilic vein 902375678 Active 2017 R arm Not Available [facility] 2 13:13:14 Problem Notes None recorded. Procedures Surgical History Date Name Laterality Status Provider Name and Address Organization Details Recorded Time 025 Corticosteroid Injection completed Irvin Garcia DO [address] [place], [address], [facility] 12/03/2024 15:05:44 024 Cerumen Removal completed AVANI GOMEZ [address] [place], [address], [facility] 12/02/2023 10:49:07 Imaging Results None recorded. Procedure Notes None recorded. Medical Equipment None Reported. Allergies Allergen ID Allergen Name Allergen Category Reaction Reaction Severity Criticality Documentation Date Start Date Code Code System Note Provider Name and Address Organization Details Recorded Time metformin medicatio n hives Not available Not available 12/05/2017 6809 RxNorm Adriana Bowers [facility] 8 09:20:17 203 Reglan medicatio n itching severe Not available 12/05/2017 9230 [facility] 09:[facility]27 206 Product containin g 3-hydroxy -3-methyl glutaryl- coenzyme A reductase inhibitor (product) medicatio n myalgias (muscle pain) Not available Not available 12/05/2017 99496 009 [facility] 09:20[facility]52 2426 Breo medicatio n cough Not available Not available 07/19/2018 75144 87 [facility] 8 14:57:49 2427 fluticaso ne / salmetero l medicatio n cough Not available Not available 07/19/2018 19590 5 RxNorm Adriana cuadra [facility] 8 14:57:55 4381 ezetimibe medicatio n Not available Not available Not available 12/31/2020 19225 8 RxNorm back ache Adriana Bowers khalif, [facility] 1 15:38:14 5795 Substance with sulfonami de structure and antibacte rial mechanism of action (substanc e) medicatio n Not available Not available Not available 03/12/2022 12754 8003 SNOMED AVANI GOMEZ [address] [place], [address], [facility] 2 15:14:21 Medications Name Sig Start Date Stop Date Status Note LastModified by Organization Details LastModified Time Prescriptio n - New 04/11 completed Not Available Not Available Not Available Prescriptio n - Prior Authorizati on Request 04/28 completed Not Available Not Available Not Available losartan 50 mg tablet Take 1 tablet every day by oral route for 90 days. 11/23 completed Not Available Not Available Not Available cyclobenzap rine 10 mg tablet 06/13 completed Not Available Not Available Not Available lamotrigine 150 mg tablet TAKE 1 TABLET BY MOUTH TWICE DAILY active Not Available Not Available No t Available desonide 0.05 % topical cream APPLY A THIN LAYER TWICE A DAY 11/23 completed Not Available Not Available Not Available bupropion HCl SR 150 mg tablet,12 hr sustained-r elease take 1 tablet by mouth twice a day 11/23 completed Not Available Not Available Not Available azelastine 0.05 % eye drops INSTILL 1 DROP IN AFFECTED EYE(S) TWICE DAILY FOR 10 DAYS active Not Available Not Available No t Available Tylenol 500 mg capsule Take 1 tablet every 4 hours by oral route. 06/13 completed Not Available Not Available Not Available lamotrigine 200 mg tablet TAKE 1 TABLET BY MOUTH TWICE DAILY active Not Available Not Available No t Available clindamycin HCl 300 mg capsule 09/14 completed Not Available Not Available Not Available trazodone 50 mg tablet TAKE 1 TABLET BY MOUTH EVERY DAY 07/27 completed Not Available Not Available Not Available azithromyci n 250 mg tablet 01/13 completed Not Available Not Available Not Available ofloxacin 0.3 % eye drops INSTILL 1 DROP IN LEFT EYE FOUR TIMES DAILY FOR 7 DAYS active Not Available Not Available No t Available fluconazole 200 mg tablet Take 1 tablet every day by oral route for 1 day. 02/13 completed Not Available Not Available Not Available meloxicam 15 mg tablet 01/13 completed Not Available Not Available Not Available prednisone 20 mg tablet TAKE 2 TABLETS BY MOUTH EVERY DAY FOR 7 DAYS 05/11 completed Not Available Not Available Not Available clobetasol 0.05 % topical cream 11/23 completed Not Available Not Available Not Available sumatriptan 50 mg tablet TAKE 1 TABLET (50 MG) BY ORAL ROUTE AFTER ONSET OF MIGRAINE; MAY REPEAT AFTER 2 HOURS IF HEADACHE RETURNS, NOT TO EXCEED 200MG IN 24HRS 05/11 completed Not Available Not Available Not Available penicillin V potassium 500 mg tablet 03/27 completed Not Available Not Available Not Available valacyclovi r 500 mg tablet TAKE 1 TABLET BY MOUTH THREE TIMES DAILY active Not Available Not Available No t Available omeprazole 40 mg capsule,del ayed release Take 1 capsule every day by oral route for 90 days. 05/09 completed Not Available Not Available Not Available tramadol 50 mg tablet TAKE 1 TABLET BY MOUTH EVERY 6 HOURS FOR 7 DAYS NEEDED active Not Available Not Available No t Available sildenafil 100 mg tablet TAKE 1 TABLET BY MOUTH NEEDED AND DIRECTED 07/27 completed Not Available Not Available Not Available triamcinolo ne acetonide 0.1 % topical cream APPLY TOPICALLY TO THE AFFECTED AREA TWICE DAILY NEEDED active Not Available Not Available No t Available bupropion HCl SR 100 mg tablet,12 hr sustained-r elease Take 1 tablet every day by oral route for 30 days. 12/18 completed Not Available Not Available Not Available carvedilol 3.125 mg tablet take 1 tablet by mouth twice a day 11/23 completed Not Available Not Available Not Available ketorolac 0.5 % eye drops INSTILL 1 DROP IN LEFT EYE THREE TIMES DAILY 07/27 completed Not Available Not Available Not Available oxycodone-a cetaminophe n 5 mg-325 mg tablet 11/23 completed Not Available Not Available Not Available terbinafine HCl 250 mg tablet TAKE 1 TABLET BY MOUTH EVERY DAY 07/27 completed Not Available Not Available Not Available Guaiatussin AC 10 mg-100 mg/5 mL oral liquid Take 10 mL every 6 hours by oral route as needed. 01/08 completed Not Available Not Available Not Available propranolol 10 mg tablet Take 1 tablet twice a day by oral route as needed for 30 days. active Not Available Not Available No t Available hydromorpho ne 2 mg tablet 03/12 completed Not Available Not Available Not Available amitriptyli ne 25 mg tablet TAKE 1 TABLET BY MOUTH EVERY DAY FOR 30 DAYS 03/13 completed Not Available Not Available Not Available prednisolon e acetate 1 % eye drops,suspe nsion SHAKE LIQUID WELL AND PLACE 1 DROP INTO THE RIGHT EYE THREE TIMES DAILY active Not Available Not Available No t Available lorazepam 0.5 mg tablet TAKE 1 TO 2 TABLETS BY MOUTH EVERY NIGHT AT BEDTIME NEEDED FOR INSOMNIA active Not Available Not Available No t Available tamsulosin 0.4 mg capsule Take 1 capsule every day by oral route for 30 days. 06/13 completed Not Available Not Available Not Available cephalexin 500 mg capsule TAKE 1 CAPSULE BY MOUTH THREE TIMES DAILY FOR 10 DAYS 10/14 completed Not Available Not Available Not Available erythromyci n 5 mg/gram (0.5 %) eye ointment APPLY A SMALL AMOUNT INTO THE LEFT EYE 2 TO 3 TIMES PER DAY NEEDED FOR COMFORT 07/27 completed Not Available Not Available Not Available oseltamivir 75 mg capsule Take 1 capsule twice a day by oral route for 5 days. 11/23 completed Not Available Not Available Not Available triamcinolo ne acetonide 0.1 % topical ointment APPLY A THIN LAYER TO THE AFFECTED AREA(S) BY TOPICAL ROUTE 2 TIMES PER DAY 12/31 completed Not Available Not Available Not Available clotrimazol e-betametha sone 1 %-0.05 % topical cream APPLY TOPICALLY TO THE AFFECTED AND SURROUNDI NG AREAS THREE TIMES DAILY FOR 2 WEEKS active Not Available Not Available No t Available gabapentin 300 mg capsule Take 1 capsule 3 times a day by oral route for 30 days. 03/13 completed Not Available Not Available Not Available diclofenac sodium 75 mg tablet,brennon yed release TAKE 1 TABLET BY MOUTH TWICE DAILY FOR 10 DAYS 02/25 completed Not Available Not Available Not Available levetiracet am 750 mg tablet TAKE 1 TABLET BY MOUTH TWO TIMES A DAY active Not Available Not Available No t Available Coumadin 5 mg tablet TAKE 1 TABLET BY MOUTH TWICE DAILY 04/21 completed Not Available Not Available Not Available mirtazapine 15 mg tablet Take 1 tablet every day by oral route for 30 days. 07/27 completed Not Available Not Available Not Available gabapentin 100 mg capsule Take 1 capsule every day by oral route for 30 days. 03/12 completed Not Available Not Available Not Available azelastine 137 mcg (0.1 %) nasal spray 12/18 completed Not Available Not Available Not Available ibuprofen 600 mg tablet prn 02/04 completed Not Available Not Available Not Available cefuroxime axetil 500 mg tablet 01/13 completed Not Available Not Available Not Available levofloxaci n 750 mg tablet 01/13 completed Not Available Not Available Not Available ketoconazol e 2 % topical cream APPLY TOPICALLY TO THE AFFECTED AREA EVERY DAY FOR 2 WEEKS 07/27 completed Not Available Not Available Not Available hydromorpho ne 4 mg tablet TAKE 1 TABLET BY MOUTH FOUR TIMES DAILY FOR 7 DAYS NEEDED 05/11 completed Not Available Not Available Not Available cefdinir 300 mg capsule 01/13 completed Not Available Not Available Not Available losartan 100 mg tablet TAKE 1 TABLET BY MOUTH EVERY DAY active Not Available Not Available No t Available sertraline 50 mg tablet Take 1 tablet every day by oral route for 30 days. 02/13 completed Not Available Not Available Not Available doxycycline hyclate 100 mg tablet TAKE 1 TABLET BY MOUTH TWICE DAILY FOR 10 DAYS active Not Available Not Available No t Available lamotrigine 100 mg tablet TAKE 1 TABLET BY MOUTH TWICE DAILY active 250 mg Not Available Not Available Not Available amoxicillin 875 mg-potassiu m clavulanate 125 mg tablet TAKE 1 TABLET BY MOUTH EVERY 12 HOURS FOR 14 DAYS 05/11 completed Not Available Not Available Not Available amoxicillin 500 mg-potassiu m clavulanate 125 mg tablet TAKE 1 TABLET BY MOUTH EVERY 12 HOURS FOR 7 DAYS 03/22 completed Not Available Not Available Not Available Ventolin HFA 90 mcg/actuati on aerosol inhaler TAKE 2 INHALATIO NS BY MOUTH EVERY 4 HOURS IF NEEDED 06/13 completed Not Available Not Available Not Available tobramycin 0.3 %-dexametha sone 0.1 % eye drops,suspe nsion SHAKE LIQUID AND INSTILL 1 DROP IN BOTH EYES THREE TIMES DAILY active Not Available Not Available No t Available oxycodone 5 mg tablet Take 2 tablets every 4 hours by oral route as needed for 3 days. 03/12 completed Not Available Not Available Not Available escitalopra m 10 mg tablet TAKE 1 TABLET BY MOUTH DAILY 07/27 completed Not Available Not Available Not Available ezetimibe 10 mg tablet Take 1 tablet every day by oral route. 03/12 completed Not Available Not Available Not Available Vitamin D3 25 mcg (1,000 unit) capsule Take 1 capsule every day by oral route. 06/13 completed Not Available Not Available Not Available insulin aspart (U-100) 100 unit/mL (3 mL) subcutaneou s pen active Not Available Not Available Not Available rosuvastati n 20 mg tablet 11/23 completed Not Available Not Available Not Available Cialis 20 mg tablet Take 1 tablet every day by oral route. 03/12 completed PRN Not Available Not Available Not Available eszopiclone 1 mg tablet TAKE 1 TABLET BY MOUTH EVERY DAY AT BEDTIME active Not Available Not Available No t Available levalbutero l HFA 45 mcg/actuati on aerosol inhaler INHALE 2 PUFFS BY MOUTH EVERY 6 HOURS active Not Available Not Available No t Available chlorhexidi ne gluconate 0.12 % mouthwash 09/14 completed Not Available Not Available Not Available Vitamin B-12 07/27 completed Not Available Not Available Not Available Vitamin B-1 active Not Available Not A vailable Not Available zinc active Not Available Not Availa ble Not Available Vitamin B-2 daily active OTC Not Available Not A vailable Not Available Excedrin Migraine PRN for headaches 06/13 completed Not Available Not Available Not Available fluticasone propionate PRN nasal spray 02/13 completed Not Available Not Available Not Available Vitamin D3 active Not Available Not Av ailable Not Available Xopenex PRN 07/27 completed Not Available Not Available Not Available Pulmicort Flexhaler 180 mcg/actuati on breath activated Inhale 1 puff twice a day by inhalatio n route for 30 days. 06/13 completed Not Available Not Available Not Available Symbicort 160 mcg-4.5 mcg/actuati on HFA aerosol inhaler 03/27 completed Not Available Not Available Not Available oxycodone 10 mg tablet TAKE 1 TABLET BY MOUTH THREE TIMES DAILY FOR 7 DAYS 05/11 completed Not Available Not Available Not Available melatonin 5 mg tablet TAKE 1 TABLET BY MOUTH EVERY NIGHT AT BEDTIME NEEDED FOR SLEEP active Not Available Not Available No t Available GaviLyte-G 236 gram-22.74 gram-6.74 gram-5.86 gram oral solution 01/13 completed Not Available Not Available Not Available Cambia 50 mg oral powder packet Take 1 packet every day by oral route. 07/27 completed Not Available Not Available Not Available doxepin 3 mg tablet TAKE 1 TABLET BY MOUTH EVERY DAY AT BEDTIME 10/14 completed Not Available Not Available Not Available doxepin 6 mg tablet Take 1 tablet every day by oral route at dinner for 30 days. 2023 active Not Available Not Available Not Avai lable Xarelto 20 mg tablet Take 1 tablet every day by oral route for 30 days. 11/02 completed Not Available Not Available Not Available Eliquis 5 mg tablet TAKE 1 TABLET BY MOUTH TWICE DAILY active Not Available Not Available No t Available Breo Ellipta 100 mcg-25 mcg/dose powder for inhalation Inhale 1 puff every day by inhalatio n route. 06/26 completed Not Available Not Available Not Available Trulicity 1.5 mg/0.5 mL subcutaneou s pen injector INJECT 1 DOSE UNDER THE SKIN ONCE WEEKLY active Not Available Not Available No t Available Trulicity 0.75 mg/0.5 mL subcutaneou s pen injector Inject 7.5 mL every week by sub-q route for 56 days. 12/18 completed Not Available Not Available Not Available Xarelto DVT-PE Treatment 30-Day Starter 15 mg(42)-20 mg(9) tablet pack TAKE DIRECTED 05/20 completed Not Available Not Available Not Available Vitamin B12 once a day 06/13 completed Not Available Not Available Not Available Repatha SureClick 140 mg/mL subcutaneou s pen injector active Not Available Not Available Not Available Tresiba FlexTouch U-100 insulin 100 unit/mL (3 mL) subcutaneou s pen INJECT 25 UNITS UNDER THE SKIN SUBCUTANE OUSLY EVERY NIGHT AT BEDTIME active Not Available Not Available No t Available Tresiba FlexTouch U-100 60 units daily 12/18 completed Not Available Not Available Not Available naloxone 4 mg/actuatio n nasal spray CALL 911. SPR CONTENTS OF ONE SPRAYER (0.1ML) INTO ONE NOSTRIL. REPEAT IN 2-3 MIN IF SYMPTOMS OF OPIOID EMERGENCY PERSIST, ALTERNATE NOSTRILS 07/27 completed Not Available Not Available Not Available Vinod YeungMino U-100 Insulin 100 unit/mL (3 mL) subcutaneou s Inject 46 units every day by sub-q route. 01/10 completed Not Available Not Available Not Available baclofen 5 mg tablet TAKE 1 TABLET BY MOUTH TWICE DAILY FOR 14 DAYS NEEDED 07/26 completed Not Available Not Available Not Available Emgality 120 mg/mL subcutaneou s syringe INJECT 120 MG BY SUBCUTANE OUS ROUTE ONCE A MONTH IN THE ABDOMEN, THIGH, OUTER UPPER ARM, OR BUTTOCKS 05/11 completed Not Available Not Available Not Available BD Jessica 2nd Gen Pen Needle 32 gauge x 5/32 USE TO TEST BLOOD GLUCOSE TWICE DAILY active Not Available Not Available No t Available FreeStyle Ronnell 2 Sensor kit USE TO TEST BLOOD SUGAR CHANGE EVERY 14 DAYS 07/27 completed Not Available Not Available Not Available Trulicity 3 mg/0.5 mL subcutaneou s pen injector ADMINISTE R 3 MG UNDER THE SKIN EVERY 7 DAYS active Not Available Not Available No t Available BinaxNOW COVID-19 Ag Self Test kit USE DIRECTED 07/20 completed Not Available Not Available Not Available Vitals Date Recorded Body height Provider Name an d Address Organization Details Last Updated DateTime 12/03/2024 175.26 cm Doris Isbell [address] [place], [address] 12/03/2024 14:41:32 Social History Question Answer Notes LastModified by Organizat ion Details LastModified Time Tobacco Smoking Status Former Smoker Not Available [employer] 08/05/2020 03:36:24 What Is Your Level Of Alcohol Consumption? Occasional [id number] Information not available 08/05/2020 What Is Your Level Of Caffeine Consumption? Moderate 4 Cups Coffee Per Day [id number] Information not available 08/05/2020 What Was The Date Of Your Most Recent Tobacco Screening? 11/09/2024 kya Information not available 11/09/2024 Sex: Unknown Functional Status Question Answer Note LastModified by Organizat ion Details LastModified Time What is your exercise level? None will be starting exercise program this week [id number] Information not available 08/05/2020 Mental Status None recorded. Family History Nothing Reported. Medical History Condition Response Coronary Artery Disease N Other N Gout N Kidney Stones N Blood Diseases N Breast Cancer N Blood Transfusion N Lung Disease N Depression N COPD N Defects or Inherited Disease N Anxiety Disorder N Muscle, Joint, or Bone Problems N Obesity N Vision or Eye Problems N Arthritis N Polyps N Infertility N Mental Disorder N Cancer N Varicosities N Stroke N Endometriosis N Bladder or Kidney Problems N High Cholesterol N Liver Disease N Headaches N Fibromyalgia N Kidney Disease N Allergies/Hayfever N Heart Problems N Hospitalizations N Thyroid Problems N GI Problems N Skin Problems N Eating Disorder N Anemia N MRSA exposure N Constipation N Mental Illness N Ovarian Cancer N Diabetes N Seizures/Epilepsy N Tuberculosis N Congestive Heart Failure (CHF) N Eczema N Diverticulitis N Abuse/Domestic Violence N Asthma N Reflux/GERD N Hepatitis N Heart Disease N Pulmonary Embolism N Hypertension N Osteoporosis N Chicken Pox N Autism Spectrum Disorder (ASD) N Immunizations Vaccine Type Date Status Note Provider Nam e and Address Organization Details Recorded Time COVID-19, mRNA, LNP-S, PF, 30 mcg/0.3 mL dose 11/02/19 22 completed Pilar cuadra [facility] 11/03/2021 13:44:57 Pneumococcal conjugate PCV 13 09/03/20 16 completed Adriana cuadra [facility] 12/08/2021 14:24:39 Influenza, split virus, quadrivalent, preservative 08/23/20 19 completed Irvin Garcia, DO [address] [facility], [place], [address], [facility] 08/24/2019 06:48:16 pneumococcal polysaccharide PPV23 12/30/19 15 completed Rosa Maria cuadra [facility] 04/28/2018 08:40:57 COVID-19, mRNA, LNP-S, PF, 30 mcg/0.3 mL dose 01/29/20 21 completed Adriana cuadra [facility] 01/30/2021 08:08:36 COVID-19 vaccine, vector-nr, rS-ChAdOx1, PF, 0.5 mL 02/19/20 21 completed Tatiana cuadra [facility] 02/20/2021 11:12:46 Past Encounters Encounter ID Performer Location Encounter Start Date Encounter Closed Date Diagnosis/Indication Diagnosis SNOMED-CT Code Diagnosis ICD10 Code Diagnosis Note [id number] Irvin Garcia [facility] [address] [facility] [address] 11/09/2024 13:49:30 11/09/2024 15:11:56 Adult health examination 252974156 Z00.01 physical exam is baseline except for the right lateral rectus Screening for cardiovascular system disease 429050116 Z13.6 Screening for malignant neoplasm of colon 116088535 Z12.11 he is due next year Asthma 459058820 J45.20 quiet Pain of le ft knee joint 9119758299 39850 M25.562 noted under the left patella Pruritic rash 29299207 L 28.2 Allergic conjunctivitis 942668185 H10.12 [id number] Irvin Garcia DO [facility] [address] [facility],[place] [address] 12/03/2024 14:38:32 12/03/2024 15:17:31 Pain of left knee joint 3969582707 94240 M25.562 known arthritis Health Concerns Section Related Observation LastModified by Organization Detai ls LastModified Time None Recorded Concern Status LastModified by Organization Details LastModified Time None Recorded Payers Encounter Date Sequence Insurance Name Policy Number Policy Serrato Covered Member ID Serrato Member ID Guarantor Name 12/03/2024 2 [id number] Ronnie Escalante [id number] Ronnie Escalante 12/03/2024 1 [place] [employer] Ronnie Escalante [id number] Ronnie Escalante Notes Date Note Type Note Provider Name a nd Address Organization Details Recorded Time 12/03/2024 text/html here for a lary injhaving a great deal of pain in the left knee Irvin Garcia DO [address] [place] [address], [phone], [facility] Internal [facility] 12/03/2024 15:08:55
--- OUTSIDE RECORDS SUMMARY | 2024-12-03 18:17 | XMS_ITS | Continuity of Care Document ---
Author Organization [facility] Address [address] [facility] [place] [address] Assessment Encounter Date Assessment Date Assessment LastModified by Organization Details LastModified Time 11/09/2024 11/09/2024 Patient presente d to office today for their Medicare Annual Wellness Visit. Education was provided on healthy nutrition, including a diet rich in fruits and vegetables, minimizing simple carbohydrates, salt, and saturated fats. Encouraged regular cardiovascular exercise such as walking at least 30 minutes daily, 5 times per week. Emphasized preventive health measures and educated pt on fall prevention and community-based lifestyle interventions to help reduce health risks and promote healthy living. Not available 11/06/2024 09:53:24 Plan of Treatment Reminders Order Date Submit Date Provider Last Modified By Organization Details Last Modified Time Details Appointments INJECTION 2024 02:45P M DR GARCIA Not available Not available Not available MEDICARE ANNUAL WELLNESS 2025 02:30P M DR GARCIA Not available Not available Not available Lab CBC w/ auto diff 2024 025 [facility], [address] [place] [address], [id number], 11/27/2024 05:21:27 CMP, serum or plasma 2024 025 [facility], [address] [place], [address], 11/27/2024 07:19:43 lipid panel, blood 2024 025 [facility], [address] [place] [address], [place], [address], 11/27/2024 06:59:47 hemoglobi n, gastroint estinal, stool 2024 [facility], [address] [place] [address], [address], 11/09/2024 14:23:17 Referral None recorded. Procedures None recorded. Surgeries None recorded. Imaging XR, knee, 3 view 2024 025 [facility], [address] [place] [address], [address], 11/23/2024 10:07:46 Medication Orders clotrimaz ole-betam ethasone 1 %-0.05 % topical cream 2024 025 [facility] [employer] [facility] #[id number], [address] [place], [place], [id number], 11/09/2024 14:22:07 azelastin e 0.05 % eye drops 2024 025 [facility] [employer] #[id number], [address], [place], [id number], 11/09/2024 14:24:29 Patient TargetsNo targets recorded. Patient Instructions Encounter Date Encounter Id Patient Instructions Last Modified By Organization Details Last Modified Time 11/09/2024 [id number] Discussed and explained advance directives such as standard forms to the {{patient caregiv er patient and caregiver}}. Face to face discussion lasted for a duration of ___ minutes. Not available 11/06/2024 09:53:24 Reason for Referral None Reported. Results Created Date Observation Date Name Description Value Unit Range Abnormal Flag Note LastModifiedBy Organization Detail LastModifiedTime 11/27/19 25 11/26/2024 XR, knee, 3 view No observ ation record ed. [email or web address] [address], [address], 11/28/2024 11:10:08 Result Notes None recorded. Problems Name Problem SNOMED Code Status Onset Date Resolution Date Notes Provider Name and Address Organization Details Recorded Time Depressi ve disorder 85573571 Active 2017 Not Available [facility] 2 13:13:14 Disorder of shoulder 297687060 Active 2017 Not Available [facility] 2 13:13:14 Injury of tendon of the rotator cuff of shoulder 763653613 Active 2017 Not Available [facility] 2 13:13:14 Loss of sense of smell 29091502 Active 2017 Not Available [facility] 2 13:13:14 Prostate specific antigen above referenc e range 211770097 Active 2018 Not Available [facility] 2 13:13:14 Primary erectile dysfunct ion 708084881 Active 2020 Not Available [facility] 2 13:13:14 Migraine 07828423 Active 2021 AVANI GOMEZ [address] [place] [address], [address], [facility] 2 15:16:01 Asthma 773330400 Active 2021 AVANI GOMEZ [address] [place] [address], [address], [facility] 2 15:27:50 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 Irivn Garcia DO [address] [place] [address], [address], [facility] 2 11:53:16 Acute maxillar y sinusiti s 17053142 Active 2021 Irvin Garcia DO [address] [place] [address], [address], [facility] 2 11:54:53 Type 2 diabetes mellitus 76187364 Active 2021 Irvin Garcia DO [address] [place] [address], [address], [facility] 2 15:50:31 Abducens nerve palsy 148266436 Active 2021 Irvin Garcia DO [address] [place] [address], [address], [facility] 2 15:51:02 Abdomina l pain 93912816 Active 2021 AVANI GOMEZ [address] [place] [address], [address], [facility] 2 10:49:35 Insomnia 694615552 Active 2021 AVANI GOMEZ [address] [place] [address], [address], [facility] 2 10:51:36 Right lower quadrant pain 701346092 Active 2021 AVANI GOMEZ [address] [place] [address], [address], [facility] 2 13:39:41 Erectile dysfunct ion 620816221 Active 2022 Irvin Garcia DO [address] [place] [address], [address], [facility] 3 14:28:20 Rash of groin 03939732509 425322 Active 2022 Irvin Garcia DO [address] [place] [address], [address], [facility] 3 20:56:46 Candidal balaniti s 10008073 Active 2022 Irvin Garcia DO [address] [place] [address], [address], [facility] 3 20:58:01 Bilatera l lower leg edema 304950155 Active 2022 Irvin Garcia DO [address] [place] [address], [address], [facility] 3 08:53:18 COVID-19 886003290 Active 2022 AVANI GOMEZ [address] [place] [address], [address], [facility] 3 10:20:19 Altered mental status 036687924 Active 2022 AVANI GOMEZ [address] [place] [address], [address], [facility] 3 12:39:39 Bilatera l hip joint pain 70331384260 823923 Active 2022 AVANI GOMEZ [address] [place] [address], [address], [facility] 3 08:29:46 Osteopor osis 79912276 Active 2022 AVANI GOMEZ [address] [place] [address], [address], [facility] 3 08:30:58 Seizure disorder 296825686 Active 2022 AVANI GOMEZ [address] [place] [address], [address], [facility] 3 14:20:17 Hypothyr oidism 61595020 Active 2022 AVANI GOMEZ [address] [place] [address], [address], [facility] 3 13:14:19 Chronic kidney disease 889976093 Active 2022 AVANI GOMEZ [address] [place] [address], , [facility] 3 13:14:31 Memory impairme nt 458746626 Active 2022 AVANI GOMEZ [address] [place] [address], [address], [facility] 3 13:16:51 Anemia 264039608 Active 2022 AVANI GOMEZ [address] [place] [address], , [facility] 3 15:53:40 Pain in right hip joint 38412650915 9102 Active 2022 AVANI GOMEZ [address] [place] [address], [address], [facility] 3 08:34:11 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 22121240 Active 2022 Irvin Garcia, DO [address] [place] [address], [address], [facility] 3 15:53:50 Recurren t deep vein thrombos is 393331186 Active 2023 Irvin Garcia, DO [address] [place] [address], [address], [facility] 4 14:21:32 Obstruct elba sleep apnea syndrome 58975750 Active 2023 Irvin Garcia DO [address] [place] [address], [address], [facility] 4 16:05:20 Fatigue 16701994 Active 2023 Irvin Garcia, DO [address] [place] [address], [address], [facility] 4 14:06:55 Acetabul ar labrum tear 535545244 Active 2023 AVANI GOMEZ [address] [place] [address], [address], [facility] 4 13:28:54 Osteoart hritis 372220538 Active 2023 AVANI GOMEZ [address] [place] [address], [address], [facility] 4 15:55:39 Rupture of hamstrin g tendon 903793330 Active 2023 AVANI GOMEZ [address] [place] [address], [address], [facility] 4 11:35:43 Corneal abrasion 62521532 Active 2023 AVANI GOMEZ [address] [place] [address], [address], [facility] 4 11:37:39 Corneal abrasion 90964192 Active 2023 AVANI GOMEZ [address] [place] [address], [address], [facility] 4 11:39:11 Low back pain 911945458 Active 2023 AVANI GOMEZ [address] [place] [address], [address], [facility] 4 11:39:20 Impacted cerumen of bilatera l ears 31959720713 92070 Active 2023 AVANI GOMEZ [address] [place] [address], [address], [facility] 4 11:39:33 Tremor 73302235 Active 2023 Irvin Garcia DO [address] [place] [address], [address], [facility] 4 13:36:17 Sleep apnea 20282061 Active 2023 AVANI GOMEZ [address] [place] [address], [address], [facility] 4 16:28:15 Dyspnea 027373273 Active 2023 AVANI GOMEZ [address] [place] [address], [address], [facility] 4 13:50:18 Pain of left knee joint 18854017553 4107 Active 2024 Irvin Garcia DO [address] [place] [address], [address], [facility] 5 14:17:11 Conjunct ival hyperemi a 804742688 Active 2024 Irvin Garcia DO [address] [place] [address], [address], [facility] 5 14:19:34 Pruritic rash 67540159 Active 2024 Irvin Garcia, DO [address] [place], [address], [facility] 5 14:21:17 Allergic conjunct ivitis 266749460 Active 2024 Irvin Garcia, DO [address] [place], [address], [facility] 5 14:23:30 Diabetes mellitus 81037157 Active 2017 Not Available [facility] 2 13:13:14 Deep venous thrombos is 717123142 Active 2017 Not Available [facility] 2 13:13:14 Pulmonar y embolism 06823607 Active 2017 Not Available [facility] 2 13:13:14 Umbilica l hernia 350987418 Active 2017 Not Available [facility] 2 13:13:14 Hyperlip idemia 92680017 Active 2017 Not Available [facility] 2 13:13:14 [facility] hyperten britney 43489507 Active 2017 Not Available [facility] 2 13:13:14 Headache 65720781 Active 2017 Not Available [facility] 2 13:13:14 Heart murmur 31406893 Active 2017 Not Available [facility] 2 13:13:14 History of appendec anne 420084947 Active 2017 Not Available [facility] 2 13:13:14 Factor V Leiden mutation 183615264 Active 2017 Not Available [facility] 2 13:13:14 Benign neoplast ic disease 41515449 Active 2017 removed Not Available [facility] 2 13:13:14 Superfic ial thrombop hlebitis of basilic vein 113109078 Active 2017 R arm Not Available [facility] 2 13:13:14 Problem Notes None recorded. Procedures Surgical History Date Name Laterality Status Provider Name and Address Organization Details Recorded Time 025 Corticosteroid Injection completed Irvin Garcia DO [address] [place], [address], [facility] 12/03/2024 15:05:44 024 Cerumen Removal completed AVANI GOMEZ [address] [place], [address], [facility] 12/02/2023 10:49:07 Imaging Results None recorded. Procedure Notes None recorded. Medical Equipment None Reported. Allergies Allergen ID Allergen Name Allergen Category Reaction Reaction Severity Criticality Documentation Date Start Date Code Code System Note Provider Name and Address Organization Details Recorded Time metformin medicatio n hives Not available Not available 12/05/2017 6809 RxNorm Adriana [facility] 8 09:20:17 203 Reglan medicatio n itching severe Not available 12/05/2017 9230 RxNorm Adriana [facility] 8 09:20:27 206 Product containin g 3-hydroxy -3-methyl glutaryl- coenzyme A reductase inhibitor (product) medicatio n myalgias (muscle pain) Not available Not available 12/05/2017 29583 009 SNOMED Adriana [facility] 8 09:20:52 2426 Breo medicatio n cough Not available Not available 07/19/2018 68247 87 RxNorm Adriana [facility] 8 14:57:49 2427 fluticaso ne / salmetero l medicatio n cough Not available Not available 07/19/2018 34183 5 RxNorm Adriana [facility] 8 14:57:55 4381 ezetimibe medicatio n Not available Not available Not available 12/31/2020 22303 8 RxNorm back ache Adriana [facility] 1 15:38:14 5795 Substance with sulfonami de structure and antibacte rial mechanism of action (substanc e) medicatio n Not available Not available Not available 03/12/2022 75967 8003 SNOMED AVANI GOMEZ [address] [place], [address], [facility] 2 15:14:21 Medications Name Sig [...] Not Available Not Available Not Available Vinod Mota U-100 Insulin 100 unit/mL (3 mL) subcutaneou [...] 2nd Gen Pen Needle 32 gauge x /32 USE TO TEST BLOOD GLUCOSE TWICE DAILY [...] Not Available Vitals Date Recorded Body height Body mass index (BMI) Body weight Heart rate Oxygen saturation Oxygen saturation in Arterial blood by Pulse oximetry Systolic blood pressure Diastolic blood pressure Provider Name and Address Organization Details Last Updated DateTime 5 175.26 cm 32.3 kg/m2 80073.7 3 g 82 /min 98 % 98 % 138 mm[Hg] 74 mm[Hg] [facility] 5 14:00:57 Social History Question Answer Notes LastModified by Organizat ion Details LastModified Time Tobacco Smoking Status Former Smoker Not Available [facility] 08/05/2020 03:36:24 What Is Your Level Of Alcohol Consumption? Occasional [id number] Information not available 08/05/2020 What Is Your Level Of Caffeine Consumption? Moderate 4 Cups Coffee Per Day [id number] Information not available 08/05/2020 What Was The Date Of Your Most Recent Tobacco Screening? 11/09/2024 [email or web address] Information not available 11/09/2024 Sex: Unknown Functional Status Question Answer Note LastModified by Organizat ion Details LastModified Time What is your exercise level? None will be starting exercise program this week [id number] Information not available 08/05/2020 Mental Status None recorded. Family History Nothing Reported. Medical History Condition Response Coronary Artery Disease N Gout N Other N Kidney Stones N Blood Diseases N Blood Transfusion N Breast Cancer N COPD N Depression N Lung Disease N Defects or Inherited Disease N Anxiety [...] N Thyroid Problems N GI Problems N Eating Disorder N Skin Problems N Anemia N MRSA exposure N Constipation N Mental Illness N Diabetes N Ovarian Cancer N Seizures/Epilepsy N Tuberculosis N Congestive Heart Failure (CHF) N Eczema N Abuse/Domestic Violence N Diverticulitis N Asthma N Reflux/GERD N Hepatitis N Heart Disease N Pulmonary Embolism N Hypertension N Chicken Pox N Autism Spectrum Disorder (ASD) N Osteoporosis N Immunizations Vaccine Type Date Status Note Provider Nam e and Address Organization Details Recorded Time COVID-19, mRNA, LNP-S, PF, 30 mcg/0.3 mL dose 11/02/19 22 completed Pilar [facility] 11/03/2021 13:44:57 Pneumococcal conjugate PCV 13 09/03/20 16 completed Adriana [facility] 12/08/2021 14:24:39 Influenza, split virus, quadrivalent, preservative 08/23/20 19 completed Irvin Garcia, DO [address] [facility] [place], [address], [facility] 08/24/2019 06:48:16 pneumococcal polysaccharide PPV23 12/30/19 15 completed Rosa Maria [facility] 04/28/2018 08:40:57 COVID-19, mRNA, LNP-S, PF, 30 mcg/0.3 mL dose 01/29/20 21 completed Adriana [facility] 01/30/2021 08:08:36 COVID-19 vaccine, vector-nr, rS-ChAdOx1, PF, 0.5 mL 02/19/20 21 completed Tatiana Marie [facility] 02/20/2021 11:12:46 Past Encounters Encounter ID Performer Location Encounter Start Date Encounter Closed Date Diagnosis/Indication Diagnosis SNOMED-CT Code Diagnosis ICD10 Code Diagnosis Note [id number] Irvin Garcia DO [facility] [address] [facility],[place] [address] 11/09/2024 13:49:30 11/09/2024 15:11:56 Adult health examination 270017666 Z00.01 physical exam is baseline except for the right lateral rectus Screening for cardiovascular system disease 176516313 Z13.6 Screening for malignant neoplasm of colon 508231336 Z12.11 he is due next year Asthma 892659036 J45.20 quiet Pain of le ft knee joint 2234226743 81751 M25.562 noted under the left patella Pruritic rash 18231523 L 28.2 Allergic conjunctivitis 318505781 H10.12 Health Concerns Section Related Observation LastModified by Organization Detai ls LastModified Time None Recorded Concern Status LastModified by Organization Details LastModified Time None Recorded Payers Encounter Date Sequence Insurance Name Policy Number Policy Serrato Covered Member ID Serrato Member ID Guarantor Name 11/09/2024 2 [place] [facility] Ronnie Escalante [id number] Ronnie Escalante 11/09/2024 1 MEDICARE B-[place]: [facility] Ronnie Escalante [id number] Ronnie Escalante Notes Date Note Type Note Provider Name a nd Address Organization Details Recorded Time 5 text/html Medicare Annual Wellness VisitReported bypatient.Diet and Nutrition:healthy diet Fracture Risk:no history of fractures; no recent explained fracture; no sudden unexplained fractures; no previous musculoskeletal injuries Physical Activity:exercises on a regular basis; recent increase in physical activity; good physical condition Depression Risk:never feels sad, empty, or tearful; no loss of interest in activities; no significant changes in weight; no sleep disturbances or insomnia; no agitation; no loss of energy; no feelings of worthlessness or guilt; no thoughts of suicide; no history of depression; no history of mood disorders Orientation:no disorientation to time; no disorientation to date; no disorientation to place Concentration and Memory:no decreased concentrating ability; no memory lapses or loss; does not forget words Speech/Motor difficulties:no speech difficulties; no difficulty expressing formulated concepts; no difficulty with fine manipulative tasks; no difficulty writing/copying; no slowed reaction time; does not knock things over when trying to pick them up Hearing:no loss of hearing Vision:no vision problems Activities of Daily Living:able to bathe with limited or no assistance; able to contol urination and bowels; able to dress with limited or no assistance; able to feed self with limited or no assistance; able to get out of chair or bed with limited or no assistance; able to groom with limited or no assistance; able to toilet with limited or no assistance Instrumental Activities of Daily Living:able to do house work with limited or no assistance; able to grocery shop with limited or no assistance; able to manage medications with limited or no assistance; able to manage money with limited or no assistance; able to prepare meals with limited or no assistance; able to use the phone with limited or no assistance Falls Risk Assessment:no frequent falls while walking; no fall in the past year; no fall since last visit; no dizziness/vertigo Home Safety:no unsafe ruddy hazzards; no unsafe stairs; no unsafe gas appliances; working smoke/CO detectors; wears protective head gear for biking/high velocity; use of seatbelts; practicing 'safer sex'; no vision or hearing loss while driving; no fire arms; has hand bars in the bathroom/shower; good lighting in the home Irvin Garcia DO [address] [place], [address], [facility] 11/09/2024 15:02:05
--- OUTSIDE RECORDS SUMMARY | 2024-12-03 18:18 | XMS_ITS | Data Portability ---
Author Organization [facility] Home Service Address [address] [place] [address] Assessment Encounter Date Assessment Date Assessment LastModified [...] promote healthy living. 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) : MDM LOW MUST MEET 2 OF [...] Lab CBC w/ auto diff 2024 025 [facility], [address] [place] [address], [address], 11/27/2024 05:21:27 CMP, serum or plasma 2024 025 [facility], [address] [place] [address], [address], 11/27/2024 07:19:43 lipid panel, blood 2024 025 [facility], [address] [place] [address], [address], 11/27/2024 06:59:47 hemoglobi n, gastroint estinal, stool 2024 025 [facility], [address] [place] [address], [address], 11/09/2024 14:23:17 Referral physical therapist referral 2023 024 [facility], [address] [place], [address], 12/02/2023 08:10:36 Procedures None recorded. Surgeries None recorded. Imaging XR, knee, 3 view 2024 025 [facility], [address] [place], [address], 11/23/2024 10:07:46 MRI, hip, w/o contrast 2023 024 [facility] Not available 07/23/2024 09:57:54 Medication Orders clotrimaz ole-betam ethasone 1 %-0.05 % topical cream 2024 025 [id number], [address] [place], [place], [phone], 11/09/2024 14:22:07 azelastin e 0.05 % eye drops 2024 025 [id number], [address] [place], [place], [phone], 11/09/2024 14:24:29 Patient TargetsNo targets recorded. Patient Instructions Encounter Date Encounter Id Patient Instructions Last Modified By Organization Details Last Modified Time 11/09/2024 [id number] Discussed and explained advance directives such as standard forms to the {{patient caregiv er patient and caregiver}}. Face to face discussion lasted for a duration of ___ minutes. Not available 11/06/2024 09:53:24 Reason for Referral Physical Therapist Referral for Rupture of hamstring tendon diagnosed through ortho with right hamstring tear, needs PT Referring Physician: Linda Morales, Internal Medicine, Encounter Date: 11/28/2023 Results Created Date Observation Date Name Description Value Unit Range Abnormal Flag Note LastModifiedBy Organization Detail LastModifiedTime 11/02/19 24 10/29/2023 MRI, hip, w/o contr ast No observ ation record ed. [facility] [address] [place] [address] , [place], [address], 11/02/2023 12:24:00 02/14/20 24 02/08/2024 elect roenc ephal ogram No observ ation record ed. [email or web address] Not Available 2023 14:54:00 04/18/20 24 04/18/2024 bone densi ty No observ ation record ed. [address], [address], 04/18/2024 15:50:39 07/17/20 24 07/17/2024 XR, hip + pelvi s, bilat eral No observ ation record ed. [address], [address], 07/18/2024 09:39:12 11/12/21 2308/02/2024 MRI, hip, w/o contr ast No observ ation record ed. [email or web address] [address], [address], 08/06/2024 10:07:23 11/27/1911/26/2024 XR, knee, 3 view No observ ation record ed. [email or web address] [address], [address], 11/28/2024 11:10:08 Result Notes None recorded. Problems Name Problem SNOMED Code Status Onset Date Resolution Date Notes Provider Name and Address Organization Details Recorded Time Depressi ve disorder 34473558 Active 2017 Not Available [facility] 2 13:13:14 Disorder of shoulder 330606204 Active 2017 Not Available [facility] 2 13:13:14 Injury of tendon of the rotator cuff of shoulder 617790759 Active 2017 Not Available [facility] 2 13:13:14 Loss of sense of smell 40094285 Active 2017 Not Available [facility] 2 13:13:14 Prostate specific antigen above referenc e range 919444991 Active 2018 Not Available [facility] 2 13:13:14 Primary erectile dysfunct ion 542418456 Active 2020 Not Available [facility] 2 13:13:14 Migraine 54055377 Active 2021 AVANI GOMEZ [address] [place] [address], [address], [facility] 2 15:16:01 Asthma 533235334 Active 2021 AVANI GOMEZ [address] [place] [address], [address], [facility] 2 15:27:50 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 Irvin Garcia DO [address] [place], [address], [facility] 2 11:53:16 Acute maxillar y sinusiti s 91599444 Active 2021 Irvin Garcia DO [address] [place] [address], [address], [facility] 2 11:54:53 Type 2 diabetes mellitus 62941748 Active 2021 Irvin Garcia DO [address] [place] [address], [address], [facility] 2 15:50:31 Abducens nerve palsy 604897526 Active 2021 Irvin Garcia DO [address] [place] [address], [address], [facility] 2 15:51:02 Abdomina l pain 89958414 Active 2021 AVANI GOMEZ [address] [place] [address], [address], [facility] 2 10:49:35 Insomnia 132056881 Active 2021 AVANI GOMEZ [address] [place] [address], [address], [facility] 2 10:51:36 Right lower quadrant pain 766397137 Active 2021 AVANI GOMEZ [address] [place] [address], [address], [facility] 2 13:39:41 Erectile dysfunct ion 822342638 Active 2022 Irvin Garcia DO [address] [place] [address], [address], [facility] 3 14:28:20 Rash of groin 79601502625 830808 Active 2022 Irvin Garcia DO [address] [place] [address], [address], [facility] 3 20:56:46 Candidal balaniti s 31628059 Active 2022 Irvin Garcia DO [address] [place] [address], [address], [facility] 3 20:58:01 Bilatera l lower leg edema 414993745 Active 2022 Irvin Garcia, DO [address] [place] [address], [address], [facility] 3 08:53:18 COVID-19 271691658 Active 2022 AVANI GOMEZ [address] [place] [address], [address], [facility] 3 10:20:19 Altered mental status 406508077 Active 2022 AVANI GOMEZ [address] [place] [address], [address], [facility] 3 12:39:39 Bilatera l hip joint pain 81878591485 287037 Active 2022 AVANI GOMEZ [address] [place] [address], [address], [facility] 3 08:29:46 Osteopor osis 41606551 Active 2022 AVANI GOMEZ [address] [place] [address], [address], [facility] 3 08:30:58 Seizure disorder 765922846 Active 2022 AVANI GOMEZ [address] [place] [address], [address], [facility] 3 14:20:17 Hypothyr oidism 84899113 Active 2022 AVANI GOMEZ [address] [place] [address], [address], [facility] 3 13:14:19 Chronic kidney disease 314433126 Active 2022 AVANI GOMEZ [address] [place] [address], [address], [facility] 3 13:14:31 Memory impairme nt 470314688 Active 2022 AVANI GOMEZ [address] [place] [address], [address], [facility] 3 13:16:51 Anemia 050672406 Active 2022 AVANI GOMEZ [address] [place] [address], [address], [facility] 3 15:53:40 Pain in right hip joint 66700379386 9102 Active 2022 AVANI GOMEZ [address] [place] [address], [address], [facility] 3 08:34:11 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 94071606 Active 2022 Irvin Garcia DO [address] [place] [address], [address], [facility] 3 15:53:50 Recurren t deep vein thrombos is 643336196 Active 2023 Irvin Garcia DO [address] [place] [address], [address], [facility] 4 14:21:32 Obstruct elba sleep apnea syndrome 28672746 Active 2023 Irvin Garcia DO [address] [place] [address], [address], [facility] 4 16:05:20 Fatigue 62706429 Active 2023 Irvin Garcia DO [address] [place] [address], [address], [facility] 4 14:06:55 Acetabul ar labrum tear 061377261 Active 2023 AVANI GOMEZ [address] [place] [address], [address], [facility] 4 13:28:54 Osteoart hritis 500758274 Active 2023 AVANI GOMEZ [address] [place] [address], [address], [facility] 4 15:55:39 Rupture of hamstrin g tendon 416804545 Active 2023 AVANI GOMEZ [address] [place] [address], [address], [facility] 4 11:35:43 Corneal abrasion 47137291 Active 2023 AVANI GOMEZ [address] [place] [address], [address], [facility] 4 11:37:39 Corneal abrasion 28086164 Active 2023 AVNAI GOMEZ [address] [place] [address], [address], [facility] 4 11:39:11 Low back pain 786920186 Active 2023 AVANI GOMEZ [address] [place] [address], [address], [facility] 4 11:39:20 Impacted cerumen of bilatera l ears 69295604137 61000 Active 2023 AVANI GOMEZ [address] [place] [address], [address], [facility] 4 11:39:33 Tremor 35843470 Active 2023 Irvin Garcia, [address] [place] [address], [address], [facility] 4 13:36:17 Sleep apnea 27325426 Active 2023 AVANI GOMEZ [address] [place] [address], [address], [facility] 4 16:28:15 Dyspnea 214110905 Active 2023 AVANI GOMEZ [address] [place] [address], [address], [facility] 4 13:50:18 Pain of left knee joint 78483628444 4107 Active 2024 Irvin Garcia, DO [address] [place] [address], [address], [facility] 5 14:17:11 Conjunct ival hyperemi a 186104573 Active 2024 Irvin Garcia, DO [address] [place] [address], [address], [facility] 5 14:19:34 Pruritic rash 44686190 Active 2024 Irvin Garcia, DO [address] [place] [address], [address], [facility] 5 14:21:17 Allergic conjunct ivitis 147439159 Active 2024 Irvin Garcia, DO [address] [place] [address], [address], [facility] 5 14:23:30 Diabetes mellitus 57400285 Active 2017 Not Available [facility] 2 13:13:14 Deep venous thrombos is 721740778 Active 2017 Not Available [facility] 2 13:13:14 Pulmonar y embolism 02175131 Active 2017 Not Available [facility] 2 13:13:14 Umbilica l hernia 168160351 Active 2017 Not Available [facility] 2 13:13:14 Hyperlip idemia 55752062 Active 2017 Not Available [facility] 2 13:13:14 [facility]entia l hyperten britney 29688924 Active 2017 Not Available [facility] 2 13:13:14 Headache 60239531 Active 2017 Not Available [facility] 2 13:13:14 Heart murmur 99739316 Active 2017 Not Available [facility] 2 13:13:14 History of appendec anne 135271893 Active 2017 Not Available [facility] 2 13:13:14 Factor V Leiden mutation 221071873 Active 2017 Not Available [facility] 2 13:13:14 Benign neoplast ic disease 27420073 Active 2017 removed Not Available [facility] 2 13:13:14 Superfic ial thrombop hlebitis of basilic vein 180708302 Active 2017 R arm Not Available [facility] 2 13:13:14 Problem Notes None recorded. Procedures Surgical History Date Name Laterality Status Provider Name and Address Organization Details Recorded Time 025 Corticosteroid Injection completed Irvin Garcia DO [address] [place], [address], [facility] 12/03/2024 15:05:44 024 Cerumen Removal completed AVANI GOMEZ [address] [place], [address], [facility] 12/02/2023 10:49:07 Imaging Results Imaging Date Name Status LastModified by Organization Details LastModified Time 10/29/2023 MRI, hip, w/o contrast completed [facility] [address] [place] [address], [place], [address], 11/02/2023 12:24:00 02/08/2024 [email or web address] not available 02/14/2024 14:54:00 04/18/2024 bone density completed [address], [address], 04/18/2024 15:50:39 07/17/2024 XR, hip + pelvis, bilateral completed [address], [address], 07/18/2024 09:39:12 08/02/2024 MRI, hip, w/o contrast completed [address], [address], 08/06/2024 10:07:23 11/26/2024 XR, knee, 3 view completed [email or web address] [address], [place], [address], 11/28/2024 11:10:08 Procedure Notes None recorded. Medical Equipment None Reported. Allergies Allergen ID Allergen Name Allergen Category Reaction Reaction Severity Criticality Documentation Date Start Date Code Code System Note Provider Name and Address Organization Details Recorded Time 202 metformin medicatio n hives Not available Not available 12/05/2017 6809 RxNorm Adriana cuadra [facility] 8 09:20:17 203 Reglan medicatio n itching severe Not available 12/05/2017 9230 RxNorm Adriana cuadra [facility] 8 09:20:27 206 Product containin g 3-hydroxy -3-methyl glutaryl- coenzyme A reductase inhibitor (product) medicatio n myalgias (muscle pain) Not available Not available 12/05/2017 92391 009 SNOMED Adriana cuadra [facility] 8 09:20:52 2426 Breo medicatio n cough Not available Not available 07/19/2018 69328 87 RxNorm Adriana cuadra [facility] 8 14:57:49 2427 fluticaso ne / salmetero l medicatio n cough Not available Not available 07/19/2018 98613 5 RxNorm Adriana cuadra [facility] 8 14:57:55 4381 ezetimibe medicatio n Not available Not available Not available 12/31/2020 85072 8 RxNorm back ache Adriana cuadra [facility] 1 15:38:14 5795 Substance with sulfonami de structure and antibacte rial mechanism of action (substanc e) medicatio n Not available Not available Not available 03/12/2022 24139 8003 SNOMED AVANI GOMEZ [address] [place], [address], [facility] 2 15:14:21 Medications Name Sig [...] completed Not Available Not Available Not Available Basaglar KwikPen U-100 Insulin 100 unit/mL (3 mL) subcutaneou [...] and Address Organization Details Last Updated DateTime 4 175.26 cm 32.6 kg/m2 153481. 91 g 81.99 /min 96 % 96 % 122 mm[Hg] 70 mm[Hg] AVANI GOMEZ [address] [place], [address] [place] [address] [facility] 4 11:26:12 Date Recorded Body height Body mass index (BMI) Body weight Heart rate Oxygen saturation Oxygen saturation in Arterial blood by Pulse oximetry Systolic blood pressure Diastolic blood pressure Provider Name and Address Organization Details Last Updated DateTime 4 175.26 cm 32.4 kg/m2 64897.5 3 g 89 /min 97 % 97 % 134 mm[Hg] 78 mm[Hg] Na Orellana [facility] 4 15:59:56 Date Recorded Body height Body mass index (BMI) Body weight Heart rate Oxygen saturation Oxygen saturation in Arterial blood by Pulse oximetry Systolic blood pressure Diastolic blood pressure Provider Name and Address Organization Details Last Updated DateTime 5 175.26 cm 32.3 kg/m2 25274.7 3 g 82 /min 98 % 98 % 138 mm[Hg] 74 mm[Hg] Roshni Ninomond [facility] 14:00:57 Date Recorded Body height Provider Name an d Address Organization Details Last Updated DateTime 12/03/2024 175.26 cm Doris Isbell O [address] [place], [address], [facility] 12/03/2024 14:41:32 Social History Question Answer Notes LastModified by [employer] Details LastModified Time Tobacco Smoking Status Former Smoker Not Available [facility] 08/05/2020 03:36:24 What Is Your Level Of Alcohol Consumption? Occasional [id number] Information not available 08/05/2020 What Is Your Level Of Caffeine Consumption? Moderate 4 Cups Coffee Per Day [id number] Information not available 08/05/2020 What Was The Date Of Your Most Recent Tobacco Screening? 11/09/2024 [email or web address] Information not available 11/09/2024 Sex: Unknown Functional Status Question Answer Note LastModified by [employer] Details LastModified Time What is your exercise level? None will be starting exercise program this week [id number] Information not available 08/05/2020 Mental Status None [...] mcg/0.3 mL dose 11/02/19 22 completed Pilar Brower null, [facility] 11/03/2021 13:44:57 Pneumococcal conjugate PCV 13 09/03/20 16 completed Adriana cuadra, [facility] 12/08/2021 14:24:39 Influenza, split virus, quadrivalent, preservative 08/23/20 19 completed Irvin Garcia, [address], [address], [facility] 08/24/2019 06:48:16 pneumococcal polysaccharide PPV23 12/30/19 15 completed Rosa Maria [facility], [facility] 04/28/2018 08:40:57 COVID-19, mRNA, LNP-S, PF, 30 mcg/0.3 mL dose 01/29/20 21 completed Adriana [facility], [facility] 01/30/2021 08:08:36 COVID-19 vaccine, vector-nr, rS-ChAdOx1, PF, 0.5 mL 02/19/20 21 completed Tatiana Marie [facility] 02/20/2021 11:12:46 Past Encounters Encounter ID Performer Location Encounter Start Date Encounter Closed Date Diagnosis/Indication Diagnosis SNOMED-CT Code Diagnosis ICD10 Code Diagnosis Note [id number] Irvin Garcia [address],[place] [address] 01/13/2018 14:25:56 01/13/2018 16:10:39 Essential hypertension 13320832 I10 marked elevation with exercise denoting poor conditioni ng and need for regular exercise will also need to start on bp med Type 2 marianne betes mellitus 67475072 E11.9 cont current tx Depressive disorder 3548 9007 F32.1 [id number] Irvin Garcia [facility] [address],[place] [address] 02/13/2018 14:17:11 02/13/2018 16:25:48 Essential hypertension 17750044 I10 marked elevation with exercise denoting poor conditioni ng and need for regular exercise is more active now and bp great and will hld am dose of carvedilol and follow home bps Low back pain 140414250 M54.5 [id number] Brooke Ho NP, [facility] [address] [facility] [address],[place] [address] 02/22/2018 15:43:34 02/24/2018 16:47:28 Tick bite without infection 217436332 T14.8XXA call if any increased arthralgia s or fevers, night sweats [id number] Brooke Ho NP, [facility] [address] [facility] [address],[place] [address] 04/11/2018 15:48:29 04/11/2018 16:52:39 Chronic cough 86481647 R05 Essential hypertension 37229585 I10 stable [id number] Brooke Ho NP, S [facility] Internal [facility] [address] [facility],[place] [address] 04/28/2018 14:31:30 05/03/2018 11:06:52 Restrictive lung disease 24565765 J98.4 Type 2 marianne betes mellitus 53373848 E11.9 Shoulder joint pain 2679 82124 M25.519 [id number] Irvin Garcia [facility] [address] [place] [address],[place] [address] 05/29/2018 15:35:57 05/29/2018 16:44:09 Tinea cruris 208914767 B35.6 will try lotrisone nad diflucan tab [id number] Irvin Garcia [facility] [address] [facility],[place] [address] 06/26/2018 15:51:33 06/26/2018 16:49:56 Diabetes mellitus 18688820 E11.9 a1c is 9.8 awful catrachita increase basiglar as ordered will recc crestor as all other statins cause muscle aches Disorder of shoulder 118 096166 M75.01 will try to order MRI Depressive disorder 0558 9007 F32.1 wellbutrin trial Cough 17658747 R05 will try sample of [id number] Irvin Garcia [facility] [address] [facility] [address],[place] [address] 07/19/2018 14:53:54 07/24/2018 09:24:02 Depressive disorder 20280243 F32.1 wellbutrin seems to be working ok Disorder of shoulder 118 881908 M75.01 xray unrevealin g shoulder is still very sore with any motion of rom needs an mri Diabetes mellitus 606386 09 E11.9 a1c is 9.8 awful catrachita increase basiglar as ordered despite increased insulin dosage is there something underlying him and is affecting his glucose reading will recc crestor as all other statins cause muscle aches will need to consider referral Essential hypertension 49086213 I10 marked elevation with exercise denoting poor conditioni ng and need for regular exercise is more active now and bp great and will hld am dose of carvedilol and follow home bps Chronic cough 42567863 R 05 will need to refer to dr Zaman he has been coughing since spring and despite several abx as well as inhalers and even pred taper he is not better [id number] Irvin Garcia [facility] [address] [facility],[place] [address] 08/02/2018 13:59:39 08/02/2018 14:36:13 Diabetes mellitus 91849941 E11.9 a1c is 9.8 awful catrachita increase basiglar as ordered despite increased insulin dosage is there something underlying him and is affecting his glucose reading but he is doing much better now that he is walking a lot and much more active will recc crestor as all other statins cause muscle aches will need to consider referral Essential hypertension 18036691 I10 marked elevation with exercise denoting poor conditioni ng and need for regular exercise is more active now and bp great and will hld am dose of carvedilol and follow home bps Abdominal aortic aneurysm screening 286373796 Z13.6 screening Rotator cuff syndrome 41 [address] M75.101 awaiting appt and MRI from Dr Cole Chronic cough 21870143 R 05 will need to refer to dr Zaman he has been coughing since spring and despite several abx as well as inhalers and even pred taper he is not better [id number] Irvin Garcia DO [facility] [address] [facility],[place] [address] 08/23/2018 11:44:35 08/23/2018 12:30:14 Diabetes mellitus 66239922 E11.9 a1c was 9.8 awful and had increased basaglar as ordered will recc crestor as all other statins cause muscle aches will need to consider referral Essential hypertension 53193065 I10 marked elevation with exercise denoting poor conditioni ng and need for regular exercise is more active now and bp great and will hld am dose of carvedilol and follow home bps Depressive disorder 3548 9007 F32.1 wellbutrin seems to be working ok but states has been seeing and heard things not there not sure how this ties in to his short term memory problems Right pneumothorax 53942 3001 J93.9 will order CXR Uncompensa stacey short term memory deficit 86675070 R41.1 Headache 64386301 R51 with mental status changes and new onset severe short term memory loss and partial aphasia Altered mental status 41 3792290 R41.82 with mental status changes and new onset severe short term memory loss and partial aphasia has been noted as well hallucinat ions(?) are new since on the buproprion [id number] Irvin Garcia [facility] [address] [facility],[employer] [address] 09/01/2018 13:44:46 09/01/2018 16:51:43 Allergy to mold 642099268 Z91.048 has been exposed to black mold excessivel y for 6 months now that he is out of it he will be expected to recover slowly with a slow improvemen t in cough etc awaiting referral to dr hartmann willsee him in dec Diabetes mellitus 975258 09 E11.9 glucose readings are much improved and is running low 100's states eating better will recc crestor as all other statins cause muscle aches will need to consider referral Essential hypertension 11648014 I10 is more active now and bp great and will hld am dose of carvedilol and follow home bps Injury of tendon of the rotator cuff of shoulder [id number] S46.001A seeing dr cole in a few weeks Memory impairment 186843 006 R41.3 awaiting referral consult to dr hung [id number] Irvin Garcia [facility] Internal Medicine [address] [facility] [address],[employer] [place] [address] 01/08/2019 11:10:53 01/08/2019 11:57:02 Diabetes mellitus 45166363 E11.9 glucose readings are not improved and is runningin 200s+ states not eating better will recc crestor as all other statins cause muscle aches will need to be seen by endocrine likes the carbs must call endocrine for a eval Essential hypertension 96949965 I10 is not very active and is not exerting on a regular basis Visual disturbance 72041 001 H53.9 states has had lessening of his acuity and will be seeing an optho for eval this week Acute sinusitis 24287242 J01.90 will use augmentin pt to stop daily use of netti pots irrigation [id number] Irvin Garcia [facility] Internal Medicine [address] [facility] [address], [place] [address] 03/27/2019 09:51:17 03/27/2019 14:43:36 Type 2 diabetes mellitus 16508965 E11.9 Adult [facility] th examination 224197716 Z00.01 doing ok overall has no evid of new pathology has appt with urol in couple months but was just seen 2 weeks ago await notes as his psa was elevated to 10 Screening for malignant neoplasm of colon 727592009 Z12.11 he is due next year [id number] Irvin Garcia [facility] Internal Medicine [address] [facility] [address],[place] [address] 01/10/2019 14:00:20 01/10/2019 15:05:07 Diabetes mellitus 50775433 E11.9 glucose readings are not improved and is runningin 200s+ states not eating better will recc crestor as all other statins cause muscle aches will need to be seen by endocrine likes the carbs must call endocrine for a eval Essential hypertension 02774795 I10 is not very active and is not exerting on a regular basis Prostate s pecific antigen above reference range 409797358 R97.20 elevated so we will need to have this repeated and then worked up Foot pain 00579075 M79.6 72 has a small mass in arch of foot Brooke Ho NP, S [facility] Internal Medicine [address] [facility] [address],[place] [address] 02/13/2019 14:51:25 02/13/2019 15:40:39 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 [address] 05/09/2019 11:32:18 05/09/2019 13:53:50 Essential hypertension 06511706 I10 stable Diabetes mellitus 815166 09 E11.9 Right flank pain 7835014 09 R10.9 ? kidney stone declines narc at this time will call as he cannot take nsaids due to coumadin Depressive disorder 3548 9007 F32.1 [id number] Marcela [facility] Internal Medicine [address] [facility] [address],[place] [address] 05/16/2019 15:14:17 05/16/2019 15:41:49 Essential hypertension 82076234 I10 stable Diabetes mellitus 762661 09 E11.9 bs has been better lately Right flank pain 3745045 09 R10.9 unclear etiology Right lowe r quadrant pain 613638696 R10.31 [id number] Irvin Garcia [facility] Internal Medicine [address] [facility] [address],[place] [address] 06/13/2019 14:29:02 06/13/2019 15:53:33 Pulmonary embolism 03187447 I26.99 has since stabilized Essential hypertension 03607031 I10 is not very active and is not exerting on a regular basis Diabetes mellitus 102792 09 E11.9 glucose readings are not improved and is runningin 200s+ states not eating better will recc crestor as all other statins cause muscle aches will need to be seen by endocrine likes the carbs must call endocrine for a eval Deep venou s thrombosis 870787707 I82.409 Adult bronchiectasis 510 95094 J47.9 cont with nebulizer Interstiti al lung disease 702132173 J84.[address] zaman Unsteady gait 467206888 R26.81 going to advanced therapeuti [id number] Irvin Garcia [facility] Internal Medicine [address] [facility] [address],[place] [address] 09/14/2019 13:32:52 09/14/2019 14:01:35 Essential hypertension 53884388 I10 is not very active and is not exerting on a regular basis Diabetes mellitus 572986 09 E11.9 glucose readings are not improved and is runningin 200s+ states not eating better will recc crestor as all other statins cause muscle aches will need to be seen by endocrine likes the carbs must call endocrine for a eval Contact dermatitis 33692 004 L25.9 diffusely on the face over eyebrows and around chin bilat also on left forearm he is holding the zetia in case of rash also could this be trulicity ? [id number] [facility] Internal Medicine [address] [facility] [address],[place] [address] 10/31/2019 14:42:01 10/31/2019 15:07:16 Acute pharyngitis 164148366 J02.9 Sialoadenitis 67178948 K 11.20 Diabetes mellitus 498996 09 E11.9 bs has been better lately Depressive disorder 3548 9007 F32.1 Pulmonary embolism 33345 003 I26.99 39187 [facility] Internal Medicine [address] [facility] [address], [place] [facility] [place] [address] 11/23/2019 13:56:17 11/23/2019 14:31:26 Atopic dermatitis 72420603 L20.9 use an emollient in between steroid use f/u with rn supplemental esperanza Diabetes mellitus 892569 09 E11.9 bs has been better lately Essential hypertension 10413310 I10 stable [id number] Irvin Garcia DO [facility] Internal Medicine [address] [facility] [address],[place] [address] 12/19/2019 14:11:41 12/19/2019 14:43:14 Diabetes mellitus 66647528 E11.9 glucose readings are not improved and is still runningin 200s+ states is eating about the same will recc crestor as all other statins cause muscle aches he is being seen by endocrine likes the carbs now taking trulicity Hyperlipidemia 75837471 E78.5 cholestero l will be checked Factor V L eiden mutation 845874945 D68.51 no active bleeding does get some epistaxis on occc if he uses the flonase Essential hypertension 61793536 I10 bp is good bu t he remains not very active and is not exerting on a regular basis Depressive disorder 3548 9007 F32.1 states is down to 1 wellbutrin 150mg states is not very helpful and wishes to stop we will hold the med and rechk over time [id number] Irvin Garcia DO [facility] Internal Medicine [address] [facility],[place] [address] 04/21/2020 13:35:46 04/21/2020 14:17:47 Essential hypertension 93338815 I10 bp is good bu t he remains not very active and is not exerting on a regular basis Diabetes mellitus 054603 09 E11.9 glucose readings are not improved and is still runningin 200s+ states is eating about the same will recc crestor as all other statins cause muscle aches he is being seen by endocrine likes the carbs now taking trulicity Factor V L eiden mutation 512618448 D68.51 problem has arisen re no longer able to get brand Coumadin he has had a severe reaction to generic warfarin causing lack of appropriat e gapping and subsequent high doses leading to bleeding [id number] Irvin Garcia DO [facility] Internal Medicine [address] [facility],[place] [address] 08/06/2020 08:35:29 08/06/2020 15:45:28 Diabetes mellitus 97839719 E11.9 glucose readings are not improved and is still runningin 200s+ last a1c is 8.6 and will cont to use the freestyle ronnell states is eating about the same will recc crestor as all other statins cause muscle aches he is being seen by endocrine likes the carbs now taking trulicity Essential hypertension 40637149 I10 bp is good bu t he remains not very active and is not exerting on a regular basis Prostate s pecific antigen above reference range 934091882 R97.20 elevated so we will need to have this repeated and then worked up Headache 98716022 R51.9 will have him cont on a prn tx basis [id number] Irvin Garcia [facility] Internal Medicine [address] [facility] [address] 10/21/2020 11:48:39 10/21/2020 13:26:20 Essential hypertension 21856178 I10 bp is good bu t he remains not very active and is not exerting on a regular basis weare fighting to get his bp perfect but he is not the best wioth diet compliance Diabetes mellitus 111445 09 E11.9 glucose readings are not improved and is still runningin 200s+ last a1c is 8.6 in april and he is way overdue for more lab and will cont to use the freestyle ronnell states is eating about the same will recc crestor as all other statins cause muscle aches he is being seen by endocrine dr hilliard who has been ordering tests unfortunat negro we are not getting them diet reviewed daily glucose checks are reviewed taking trulicity Paronychia of finger 444 034723 L03.019 Trigger fi nger of right hand [id number] 1296524 M65.30 will need to have him seen by spec will have him 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 [id number] Irvin Garcia DO [facility] Internal Medicine [address] [facility],[place] [address] 12/31/2020 15:29:06 12/31/2020 16:29:41 Essential hypertension 21353979 I10 bp is good bu t he remains not very active and is not exerting on a regular basis weare fighting to get his bp perfect but he is not the best wioth diet compliance Diabetes mellitus 199323 09 E11.9 glucose readings are not improved and is still runningin 200s+ last a1c is 7.8 from 8.6 in april and he is doing better on current regimen and will cont to use the freestyle ronnell states is eating about the same will recc crestor as all other statins cause muscle aches he is being seen by endocrine dr hilliard who has been ordering tests unfortunat negro we are not getting them diet reviewed daily glucose checks are reviewed has had to cut down the tresiba to 46 due to low glucose taking trulicity 3mg now Hepatitis C screening 41 7188323 Z11.59 [id number] AVANI GOMEZ [facility] Internal Medicine [address] [facility] [address],[place] [address] 02/25/2021 14:07:29 02/25/2021 14:25:34 Tic 850262476 F95.9 will fu with MRI of the brain and fu after imaging, if nothing concerning , will fu with neurology consult [id number] Irvin Garcia, [facility] Internal Medicine [address] [facility] [address],[place] [address] 12/08/2021 09:17:32 12/08/2021 13:32:59 Essential hypertension 82453952 I10 bp is good bu t he remains not very active and is not exerting on a regular basis weare fighting to get his bp perfect but he is not the best wioth diet compliance Diabetes mellitus 035652 09 E11.9 glucose readings are not improved and is still runningin 200s+ last a1c is 7.7 and was 7.8 from 8.6 in april and he is doing better on current regimen and will cont to use the freestyle ronnell states is eating about the same he is being seen by endocrine dr hilliard who has been ordering tests unfortunat negro we are not getting them diet reviewed daily glucose checks are reviewed has had to cut down the tresiba to 46 due to low glucose taking trulicity 3mg now Hyperlipidemia 06306172 E78.5 cholestero l will be checkedLDL 155discuss ion in detail Headache 12368531 R51.9 will have him cont on a prn tx basis Factor V L eiden mutation 178625723 D68.51 problem has arisen re no longer able to get brand Coumadin he has had a severe reaction to generic warfarin causing lack of appropriat e gaping and subsequent high doses leading to bleeding Depressive disorder 1608 9007 F32.1 states is down to 1 wellbutrin 150mg states is not very helpful and wishes to stop we will hold the med and rechk over time Pulmonary embolism 59337 003 I26.99 has since stabilized and without issue Adult bronchiectasis 510 88586 J47.9 cont with nebulizer as needed wondering if the recent cough episode is related Deep venou s thrombosis 217546346 I82.409 quiet and without issue Primary er ectile dysfunction 266813652 N52.9 still having a difficult time with erections he is quite upset with thishas =been to 2 diff urologists bit no treatment other than viagra was offeredwe will try to search out some diff urology [id number] AVANI GOMEZ [facility] Internal Medicine [address] [facility] [address],[place] [address] 03/12/2022 14:55:17 03/15/2022 09:19:17 Acute cystitis 33010276 N30.01 will trial on augmentin Migraine 67854429 G43.00 9 not a stroke, migraine variant Essential hypertension 89687139 I10 will think about adding amlodipine 2.5 mg due to all the medication changes he has gone through [id number] Irvin Garcia DO [facility] Internal Medicine [address] [facility] [address],[place] [address] 03/23/2022 11:29:03 03/26/2022 09:11:05 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 Acute maxi llary sinusitis 54620036 J01.00 [id number] Irvin Garcia DO [facility] Internal Medicine [address] [facility] [address],[place] [address] 04/12/2022 15:00:02 04/12/2022 16:29:59 Active or passive immunization 573174228 Z23 patient advised he is due for tdap & shingles vaccines Adult [facility] examination 361048198 Z00.01 physical exam is baseline except for the right lateral rectus Advance care planning 71 4883721 Z71.89 utd Screening for malignant neoplasm of colon 300929230 Z12.11 he is due next year Asthma 074661380 J45.90 9 quiet Type 2 marianne betes mellitus 85675540 E11.9 needs lab 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 458223 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.21 being worked up by [facility] will be seeing a neuro ophthalmol ogistbut we will also consider having him try tegretol for the severe pain he is having bc i am wondering if he is having trigem neuralg at same time [id number] AVANI GOMEZ [facility] Internal Medicine [address] [facility] [address],[place] [address] 05/11/2022 10:15:25 05/11/2022 11:35:42 Abdominal pain 12916711 R10.31 will fu with CTstart on baclofen and tramadol Insomnia 824904719 G47.0 9 will trial trazodone for insomnia [id number] AVANI GOMEZ [facility] Internal Medicine [address] [place] [address] 10/14/2022 10:03:08 10/14/2022 11:05:10 Type 2 diabetes mellitus 46162421 E11.9 stable (monitored ) Factor V L eiden mutation 176934973 D68.51 stable (monitored ) Depressive disorder 3548 9007 F32.1 stable Pulmonary embolism 77772 003 I26.99 stable (historica l) Adult bronchiectasis 510 56035 J47.9 stable Deep venou s thrombosis 072891893 I82.409 stable (historica l) Asthma 451517333 J45.20 stable (monitored ) Pre-surger y evaluation 372828087 Z01.818 The patient was seen in the office today for pre-op evaluation . All medical conditions on patient's problem list were addressed and are currently stable, no interventi on needed at this time. Based on history and physical performed, the patient is cleared for surgery. 76041 AVANI GOMEZ [facility] Internal Medicine [address] [place] [address] 07/27/2023 14:54:45 07/27/2023 16:42:15 Hypothyroidism 40699904 E02 need to recheck levels Chronic ki dney disease 428711793 N18.31 will recheck levels Seizure disorder 4253610 02 G40.909 has f/u with neurology, outpatient MRI scheduled Altered mental status 41 4198290 R41.82 discussed possibilit y of being a intermediate card tender consequenc es of seizure Memory impairment 797447 006 R41.3 will monitorif it continues to decline Insomnia 799583451 G47.0 9 will trial trazodone for insomnia Type 2 marianne betes mellitus 06826811 E11.9 stable (monitored ) Anemia 600385234 D64.9 will recheck levels Exposure to lead 8130542 692 3273193 Z77.011 86682 AVANI GOMEZ [facility] Internal Medicine [address] [facility] [address],[place] [address] 08/09/2023 10:02:28 08/09/2023 12:13:00 Seizure disorder 921337480 G40.909 MRI negativehi s EEG was abnormal, probably having seizures Type 2 marianne betes mellitus 15232778 E11.9 is following up with Dr. Pereyra tomorrow [id number] Irvin Garcia DO [facility] Internal Medicine [address] [facility] [address],[place] [address] 09/06/2023 10:20:58 09/06/2023 11:32:13 Active or passive immunization 161118816 Z23 patient advised he is due for tdap & shingles vaccines Type 2 marianne betes mellitus 50171267 E11.9 7.5% 08/05/23 Hypothyroidism 49581671 E02 lab due Hyperlipidemia 57485037 E78.5 cholestero l will be checkedLDL 155discuss ion in detail Seizure disorder 7433475 02 G40.909 he has yet to have a neuro eval [id number] Irvin Garcia DO [facility] Internal Medicine [address] [facility] [address],[place] [address] 09/23/2023 08:22:28 09/23/2023 16:33:04 Asthma 494023154 J45.20 quiet Diabetes mellitus 304287 09 E11.9 glucose readings are not improved and is still runningin 200s+ last a1c is 7.7 and was 7.8 from 8.6 in april and he is doing better on current regimen and will cont to use the freestyle ronnell states is eating about the same he is being seen by endocrine dr hilliard who has been ordering tests unfortunat negro we are not getting them diet reviewed daily glucose checks are reviewed has had to cut down the tresiba to 46 due to low glucose taking trulicity 3mg now [id number] Irvin Garcia DO [facility] Internal Medicine [address] [facility] [address],[place] [address] 09/23/2023 13:53:52 09/28/2023 09:43:20 Memory impairment 455055461 R41.3 awaiting referral consult to dr hung Seizure disorder 1374632 02 G40.909 he has yet to have a neuro eval 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.[address] erickson and having multitude of tests including eeg, mri, nct Type 2 marianne betes mellitus 34153931 E11.9 7.5% 08/05/23 and now down to 7.0 a1c Chronic ki dney disease 243476945 N18.31 creat actually stable Essential hypertension 41399664 I10 bp is good bu t he remains not very active and is not exerting on a regular basis weare fighting to get his bp perfect but he is not the best wioth diet compliance [id number] AVANI GOMEZ [facility] Internal Medicine [address] [facility],[place] [address] 11/28/2023 11:14:53 11/28/2023 16:15:54 Rupture of hamstring tendon 272191068 M66.351 start with hamstring Corneal abrasion 3197682 2 S05.02XA seeing eye doctor, sees him again Low back pain 467798337 M54.51 improving Impacted c erumen of bilateral ears 4921161214 901758 H61.23 will start him on Debrox f [id number] AVANI GOMEZ [facility] Internal Medicine [address] [facility],[place] [address] 12/02/2023 09:42:49 12/02/2023 15:57:48 Impacted cerumen of bilateral ears 0954183798 158055 H61.23 resolved [id number] AVANI GOMEZ [facility] Internal Medicine [address] [facility],[place] [address] 07/20/2024 15:42:00 07/20/2024 16:51:44 Depression screening 168058716 Z13.31 SCREENING NEGATIVE Pain in ri ght hip joint 6086471013 12727 M25.551 recommende d MRI Sleep apnea 44761942 G47 .33 will [id number] Irvin Garcia DO [facility] Internal Medicine [address] [facility],[place] [address] 11/09/2024 13:49:30 11/09/2024 15:11:56 Adult health examination 595078153 Z00.01 physical exam is baseline except for the right lateral rectus Screening for cardiovascular system disease 264823668 Z13.6 Screening for malignant neoplasm of colon 660416538 Z12.11 he is due next year Asthma 152164092 J45.20 quiet Pain of le ft knee joint 1359663345 76488 M25.562 noted under the left patella Pruritic rash 64749547 L 28.2 Allergic conjunctivitis 684431148 H10.12 [id number] Irvin Garcia, [facility] Internal Medicine [address] [facility] [address] [place] [facility] [place] [address] 12/03/2024 14:38:32 12/03/2024 15:17:31 Pain of left knee joint 1876213530 24438 M25.562 known arthritis Health Concerns Section Related Observation LastModified by Organization Detai ls LastModified Time None Recorded Concern Status LastModified by Organization Details LastModified Time None Recorded Advance Directives Directive None Recorded Payers Encounter Date Sequence Insurance Name Policy Number Policy Serrato Covered Member ID Serrato Member ID Guarantor Name 11/28/2023 1 [facility] - DOS ON OR AFTER 2023 - MEDICARE [place]ANTAGE [place]MEDICARE REPLACEMENT/ADV ANTAGE - PPO) Ronnie Escalante [id number] Ronnie Escalante 12/02/2023 1 [facility] - DOS ON OR AFTER 2023 - MEDICARE [place]AGE [place] ([place]ARE [place]AC[place]/ADV ANTAGE - PPO) Ronnie Escalante [id number] Ronnie Escalante 07/20/2024 2 [place] [facility] Ronnie Escalante [id number] Ronnie Escalante 07/20/2024 1 [place] B[place] [facility] Ronnie Escalante [id number] Ronnie Escalante 11/09/2024 2 [place] [facility] Ronnie Escalante [id number] Ronnie Escalante 11/09/2024 1 [place] [facility] Ronnie Escalante [id number] Ronnie Escalante 12/03/2024 2 [place] [facility] Ronnie Escalante [id number] Ronnie Escalante 12/03/2024 1 [place] [facility] Ronnie Escalante [id number] Ronnie Escalante Notes Date Note Type Note Provider Name and Address Organization Details Recorded Time 11/28/19 24 text/htm l f/u lab work the patient lab work was normalthe patient had MRI which showed arthritis, expected for age the patient has been hearing lossbilateral cerumen impaction will have him do debrox and set him up with lavage this week had his cataract surgerybilaterallydid have corneal abrasion, scratched himself when he was sleepingstarted ofloxacin seeing them again on the patient tore his right hamstringthe patient had the DVT in his right leg as well sugar has been doing well per patient still having issues with the lamictal amendment 12/12/23due to hamstring tear, DVT and general deconditioning patient needs to use a cane to help him with his mobility otherwise he has poor balance and has fallen a few times without ambulatory aidmedically necessary for patient to continue use with a cane otherwise he is at high risk for falls and related complications AVANI GOMEZ [address] [place], [address], [facility] Internal Medicine 12/12/2023 12:33:34 12/02/19 24 text/htm l f/u impacted cerumen KR performed ear lavage, bilaterallytolerated wellno complications, no signs of infection otherwise no other concerns today AVANI GOMEZ [address] [place], [address], [facility] 12/02/2023 10:49:32 07/20/20 24 text/htm l 6 mos f/u the patient reports he is still having some pain with his hipsstarted on tramadolthe patient and I discussed next options, recommended MRI will submit order will submit order for new BiPAP machine otherwise doing wellno other things needed at this time AVANI GOMEZ [address] [place], [id number], [facility] 07/20/2024 16:34:27 11/09/19 25 text/htm l Medicare Annual Wellness VisitReported bypatient.Diet and Nutrition:healthy [...] bathroom/shower; good lighting in the home Irvin Garcia, DO [address], [place], [id number], [facility] 11/09/2024 15:02:05 12/04/19 25 text/htm l here for a lary injhaving a great deal of pain in the left knee Irvin Garcia, DO [address], [place], [id number], [facility] 12/03/2024 15:08:55
[2024-12-03 18:33] LABS: Parathyroid Hormone Intact 49.8 pg/mL (8.7-77.1)
[2024-12-03 18:42] LABS: T4 Thyroxine 7.4 ug/dL (4.5-12.0)
[2024-12-04 05:33] LABS: Triiodothyronine T3 Free 2.9 pg/mL (2.3-4.2)
== END 2024-12-03 15:22 | disposition home or self-care (01) ==
LOC: HO.MANLDS 15:21
PROVIDERS: Visit Provider Internal Medicine
DX: E02 Subclinical iodine-deficiency hypothyroidism (principal)
CPT/HCPCS: 36415; 83970; 84436; 84443; 84481